=== PATIENT | male | born 1940 | race Caucasian/White ===

== ENCOUNTER 2023-06-19 18:59 | Inpatient (IN) | payer MEDICARE, OTHER, SELFPAY ==
[2023-06-19] VITALS (7 sets, daily range): BP systolic 102–112; BP diastolic 63–69; BMI 19.9; BMI 18.6
[2023-06-19 16:25] LABS: % Basophils 0.4 % (0-2); % Eosinophils 0.4 % (0-6); % Immature Granulocytes 0.3 % (0-0.5); % Lymphocytes 20.7 % (20.5-51.1); % Monocytes 8.9 % (1.7-9.3); % Neutrophils 69.3 % (42.2-75.2); Absolute Lymphocytes 1.6 10^3/uL (1.2-3.4); Absolute Monocytes 0.7 10^3/uL (0.1-0.6); Absolute Neutrophils 5.4 10^3/uL (1.4-6.5); Hemoglobin 19.1 g/dL (13.0-18.0); Mean Corp Hgb Conc. 34.7 g/dL (33.0-37.0); Mean Corpuscular Hgb 34.1 pg (27.0-31.0); Mean Corpuscular Volume 98.2 fL (80.0-94.0); Mean Platelet Volume 12.6 fL (7.4-10.4); Nucleated Red Blood Cells % 1.3 % (-); Platelet Count 151 10^3/uL (130-400); Red Cell Dist. Width 16.3 % (11.5-14.5); White Blood Cell Count 7.7 10^3/uL (4.8-10.8)
[2023-06-19 16:38] LABS: ALT (SGPT) 30 U/L (0-50); AST (SGOT) 50 U/L (17-59); Alkaline Phosphatase 136 U/L (38-126); Blood Urea Nitrogen 62 mg/dl (9-20); Calcium 9.7 mg/dl (8.4-10.2); Carbon Dioxide 24 mmol/L (22-30); Chloride 99 mmol/L (98-107); Estimated Creatinine Clearance 32 ml/min; Glucose 125 mg/dl (70-99); Potassium 5.6 mmol/L (3.5-5.1); Sodium 134 mmol/L (135-145); Total Bilirubin 2.8 mg/dl (0.2-1.3); Total Protein 6.7 g/dl (6.3-8.2); eGFR 46.48
--- NOTE | 2023-06-19 16:47 | PHANOTE ---
06/19/2023, [employer], spoke to pt.'s daughter to obtain pt.'s med. history; per daughter, pt. does not take his prescribed medications regularly; pt. often skips taking his meds. and is non-compliant.
--- NOTE | 2023-06-19 16:47 | ED.GENMED ---
History of Present Illness
General
Chief Complaint: Weakness
Source: patient and family
Exam Limitations: none
Time Seen by Provider: 06/19/23 16:28
Nursing documentation reviewed up to this point in time: agreed with
Travel History
Have you had any contact with someone who has COVID-19?: No
Do you have any symptoms of coronavirus? Fever > 100 degrees, chills, cough, shortness of breath, sore throat, loss of taste or smell, muscle aches, or headache?: No
History of Present Illness
History of Present Illness:
Patient is an 82-year-old male with a history of cardiac arrest in 2019, status post LAD stenting, ICD/pacer, chronic worsening cardiomyopathy with an EF of 15%, DVT on Eliquis
Presents from home with and daughter for several days of fatigue, lack of appetite and generalized weakness. Today he started having some diarrhea. He does not believe there is any blood in the stool.
He says he has taken a couple bites of his food over the last couple days but he just has a lack of appetite, he is not getting any postprandial pain or vomiting.
Patient has not had any fevers or chills. He has a chronic cough
. He was admitted last November for pneumonia patient has a palliative care physician who sent him in for evaluation. He apparently had been evaluated for hospice but is not actively on hospice. He takes 20 mg of torsemide daily however his
daughter just does believe that he is not taking his medications as prescribed. She says that she is seen that his dispenser is full of pills. She is not really sure what he has been taking regularly if anything. Patient also woke up today with
swelling around his eyes
Past History
Past History
ED Past Medical History: Arrthythmia (Atrial fib), CAD, CHF, HTN, Hypercholesterolemia, [place], Psychiatric (Depression), Other (kidney stones, Cardiac arrest, DVT, Prior Peg, UTI) and Other (DVT)
ED Past Surgical History: Cardiac (Defib) and Other (Prior Trach, Hernia repair X 2. Stents x 2)
Social History
Tobacco: Non-smoker
Alcohol: None
Drug: None
Personal:
Living: with family
Employment: Retired
Family History
Family History: Other
Review of Systems
Review of Systems
Allergies reviewed?: Yes
All Other Systems: Not applicable
Phy Exam
Physical Exam
Physical Exam:
GENERAL: Alert , in no apparent distress, chronically ill
EYE: pupils equal and reactive, pale
NECK: Supple
ENT: o/p clr, mmm.
CARDIAC: Regular rate and rhythm
some edema R>L upper eye
LUNGS: milld tachypnea, rhonchi throughout; no rales appreciated, no LE edema
ABDOMEN: Soft, without focal tenderness, no r/g, no cvat, normal bowel sounds
NEUROLOGICAL: Alert and oriented, no focal neuro deficits
SKIN: Warm and dry, skin intact.
MUSCULOSKELETAL: No edema, well perfused. neg gunjan's sign
PSYCH: Normal and appropriate interaction.
Course
Orders/Labs/Results
Orders:
Orders
06/19/23 15:16
Electrocardiogram (*1) Urgent
Reason for Study: Fatigue / Weakness
06/19/23 15:17
EKG- Treatment ONCE
06/19/23 16:19
Complete Blood Count/With Diff Urgent
Comprehensive Metabolic Panel Urgent
Lipase Urgent
NT-proBNP Urgent
Comment: ADD ON
Troponin I Urgent
06/19/23 16:35
Add On- LAB Urgent
Tests Added?: lipase, bnp
CR Chest - 2 Views Urgent
Comment:
Reason For Exam: cough, weakness
06/19/23 16:55
COVID-19 Antigen Urgent
Source: Nasal Swab
Influenza A+B Rapid Molecular Urgent
JONATHON Source: Nasal Swab
Specimen Description:
06/19/23 17:32
Piperacillin/Tazo 3.375 Gram [Zosyn] 3.375 gram in 50 ml IV NOW
06/19/23 17:37
0.9% Sodium Chloride 250 ml [Nss] 250 ml IV BOLUS
06/19/23 17:45
Blood Culture Q30M
JONATHON Source: Blood/Venous
Specimen Description:
06/19/23 18:13
Sputum Culture [Respiratory Culture/Gram Stain] Routine
JONATHON Source: Sputum
Specimen Description:
Sodium Zirconium Cyclosilicate [Lokelma] 10 gram PO NOW STA
06/19/23 18:14
Admit/Transfer Patient As Directed
Co-Sign Provider:
Level of Care: Inpatient admission
Assign to:: Telemetry
Physician / Group: kelby markham
Diagnosis: weakness 2/2 R pna pleueral effusions, beti/dehydration, hyperkalemia
Reason for Telemetry: Arrhythmia
Date to Stop Telemetry: 06/22/23
Time to Stop Telemetry: 11:00
Reason for Hospitalization: weakness 2/2 R pna pleueral effusions, beti/dehydration, hyperkalemia
Expected length of stay greater than two midnights?: Yes
ELOS- Estimated Length of Stay in days: 3
I certify the patient meets the requirements for IP care: Yes
Code Status As Directed
Resuscitation Status: Do not resuscitate
Reached after discussion with pt or family/Healthcare POA: Yes
Based on pt advanced directive or healthcare POA form: Yes
Decision communicated with: Per patient with Lauren at bedside
DNR Bracelet Application ONCE
06/19/23 18:15
Blood Culture Q30M
JONATHON Source: Blood/Venous
Specimen Description:
06/19/23 18:19
PULMONARY CONSULT Routine
Consulting Provider: Ese Sampson
Was physician already notified: Yes
Reason for consult: right ll pna bilat plueral effusions
06/19/23 18:31
Procalcitonin Urgent
PCT Algorithmm Indication: Respiratory
06/19/23 18:50
Vancomycin [Vancocin] 1,500 mg 0.9% Sodium Chloride [Nss] 20 ml 0.9% Sodium Chloride 250 ml [Nss] 250 ml IV NOW
06/19/23 20:00
VANCOMYCIN Pharmacy to Dose [VANCOCIN Pharmacy to Dose] 1 each Pharmacy To Prepare [Call Pharmacy To Prepare] 0 ml IV PER PROTOCOL
06/19/23 20:11
Urinalysis Reflex To Culture Urgent
Date Specimen was Collected: 06/19/23
Time Specimen was Collected: 16:37
Urine Microscopic Reflex Cult Urgent
Legionella Urinary Antigen Urgent
JONATHON Source: Urine
Specimen Description:
06/22/23 11:00
DC Protocol for Telemetry ONCE
Abnormal Lab Results
06/19/23
16:19
Hgb 19.1 H g/dL
(13.0-18.0)
Hct 55.0 H %
(39.0-52.0)
MCV 98.2 H fL
(80.0-94.0)
MCH 34.1 H pg
(27.0-31.0)
RDW 16.3 H %
(11.5-14.5)
MPV 12.6 H fL
(7.4-10.4)
Absolute Monos (auto) 0.7 H 10^3/uL
(0.1-0.6)
Sodium 134 L mmol/L
(135-145)
Potassium 5.6 H mmol/L
(3.5-5.1)
BUN 62 H mg/dl
(9-20)
Creatinine 1.5 H mg/dL
(0.7-1.3)
Glucose 125 H mg/dl
(70-99)
Total Bilirubin 2.8 H mg/dl
(0.2-1.3)
Alkaline Phosphatase 136 H U/L
(38-126)
Troponin I 0.069 H* ng/ml
06/19/23 16:19
06/19/23 16:19
Vital Signs
Initial and Last Documented VS:
Initial Vital Signs
Temp Pulse Resp BP Pulse Ox
97.6 F 73 16 102/65 96
06/19/23 15:12 06/19/23 15:12 06/19/23 15:12 06/19/23 15:12 06/19/23 15:12
Last Documented Vital Signs
Temp Pulse Resp BP Pulse Ox
97.6 F 65 16 109/69 92
06/19/23 15:12 06/19/23 21:00 06/19/23 21:00 06/19/23 21:00 06/19/23 20:15
MDM/Problems Addressed
Differential Diagnosis Includes:
chf, pneumonia, flu, viral syndrome, covid
MDM/Problems Addressed:
82 y/o M with CAD s/p cardiac arrest 2020 with cardiomyopathy, pacer/icd, ef of 15% here with 3-4 days fatigue, not eating, diarrhea today and a little perioribtal swelling; pt looks wiped out, stable vitals, rhonchi both lungs with cough, no LE
edema but some eyelid edema; cxr looks c/w pna and small effusions; ekg is unchanged, he does have chronically slightly elevated st seg v5, v6; trop 0.06, no chest pain, mild BETI, and hyperkalemia;
requires hospitalization for trop trending, hyperkalemia treamtnet, gentle hydration, IV abx.
*Critical Care Note
Total Time (30-74mins, 75-104mins- exclusive of procedures): Not Applicable
ED Attending Note
-
Portions of this chart may have been created with voice recognition software.� Occasional wrong word or��sound alike� substitutions may have occurred due to the inherent limitations of voice recognition software.
Discharge Plan
Departure
Patient Disposition: Admit
Date of Disposition: 06/19/23
Time of Disposition: 17:36
Presentation/result/management discussed w/ accepting MD/DO: Hospitalist
Condition: Fair
Covid-19: Not Applicable
Discharge Problem:
Pneumonia, BETI (acute kidney injury), Hyperkalemia
Interventions
Interventions:
*General Assessment Last Done: 06/19/23 16:29
*Neglect/Abuse Screening Last Done: 06/19/23 16:29
*ED COVID-19 Vaccine History Last Done: 06/19/23 16:29
*Nursing Disposition Last Done: 06/19/23 20:31
ED- Cardiac Assessment Last Done: 06/19/23 16:29
ED- Neurological Assessment Last Done: 06/19/23 16:29
ED- Pulmonary Assessment Last Done: 06/19/23 16:29
Discharge Date and Time
Discharge Date/Time: 06/19/23 21:13
[2023-06-19 16:51] LABS: Troponin I 0.069 ng/ml
[2023-06-19 17:36] LABS: COVID-19 Antigen Negative (Negative)
[2023-06-19] MEDS: ZOSYN 50 IV ×2 (17:43→23:56)
--- NOTE | 2023-06-19 17:45 | HPS.HSE ---
Family Physician
-
Family Physician: * NONE
Chief Complaint
-
Fatigue, generalized weakness, lack of appetite, diarrhea, chronic cough
History of Present Illness
82-year-old male from home complaining of fatigue, lack of appetite and generalized weakness along with some diarrhea today and a chronic cough. He denies any blood or black stools. He denies fever, chills, chest pain, palpitations, shortness of
breath, abdominal pain, nausea, vomiting, diarrhea. He was sent by his palliative care physician for evaluation. His daughter reports that his pill dispenser seems full of pills and she is unsure if he is taking his medications regularly. He has
past medical history of cardiac arrest 2019 with LAD stent, severe ischemic cardiomyopathy EF 15%, defibrillator/pacemaker, A-fib, moderate to severe MR, CHF, HTN, HLD, depression, DVT, BPH, GERD.
Medical History
Past Medical History
Past Medical History: Reports Other
Additional Past Medical History:
cardiac arrest 2020 with LAD stent
severe ischemic cardiomyopathy EF 15%
defibrillator/pacemaker
A-fib paroxysmal
moderate to severe MR
Chronic CHF
HTN
HLD
depression
DVT
BPH
GERD.
Past Surgical History: Reports Other
Additional Past Surgical History:
Defibrillator/pacemaker 2020
Cardiac arrest status post LAD stent 2020
Social History
Tobacco: Non-smoker
Alcohol: None
Drug: None
Personal:
Living: With Family ( alise)
Employment: Retired
Family History
Family History: Other (Mother age 95 post cardiac valve replacement, father CHF)
Allergies / Home Medications
Allergies reflects when Allergies were last updated in [employer].
Home Medications with original date entered in [employer]
Allergy/Medication List:
Allergies
Allergy/AdvReac Type Severity Reaction Status Date / Time
acetaminophen Allergy Rash Verified 06/19/23 15:10
[From Unisom Dual Relief]
cefepime Allergy Rash Verified 06/19/23 15:10
cefuroxime Allergy Rash Verified 06/19/23 15:10
cortisone Allergy Rash Verified 06/19/23 15:10
diphenhydramine Allergy Rash Verified 06/19/23 15:10
[From Unisom Dual Relief]
hydrocortisone Allergy Rash Verified 06/19/23 15:10
Iodinated Contrast Media Allergy Rash Verified 06/19/23 15:10
Sulfa (Sulfonamide Allergy Rash Verified 06/19/23 15:10
Antibiotics)
Home Medications
metoprolol succinate 25 mg tablet,extended release 24 hr 12.5 mg PO HS Blood Pressure 05/22/20
amiodarone 100 mg tablet 100 mg PO HS Arrhythmia 11/04/22
apixaban 2.5 mg tablet (Eliquis) 2.5 mg PO BID Blood Clot Prevention/Tx 11/04/22
aspirin 81 mg tablet,delayed release 81 mg PO DAILY@1999 Blood Clot Prevention/Tx 11/04/22
famotidine 20 mg tablet 20 mg PO BID Gastrointestinal Issue 11/04/22
finasteride 5 mg tablet 5 mg PO DAILY Urinary Issue 01/02/23
escitalopram oxalate 10 mg tablet 5 mg PO HS 06/19/23
torsemide 20 mg tablet 20 mg PO DAILY 06/19/23
Physical Exam
Vital Signs
Vital Signs
Temp Pulse Resp BP Pulse Ox
97.6 F 73 16 102/65 96
06/19/23 15:12 06/19/23 15:12 06/19/23 15:12 06/19/23 15:12 06/19/23 15:12
Laboratory Results
-
06/19/23 16:19
06/19/23 16:19
Laboratory Results
Total Bilirubin 2.8 mg/dl (0.2-1.3) H 06/19/23 16:19
AST 50 U/L (17-59) 06/19/23 16:19
ALT 30 U/L (0-50) 06/19/23 16:19
Alkaline Phosphatase 136 U/L (38-126) H 06/19/23 16:19
Troponin I 0.069 ng/ml H* 06/19/23 16:19
Impression/Plan
-
Impression/plan:
Admit to telemetry
Generalized weakness 2/2 right basilar pneumonia/BETI
Hx nasal MRSA last visit
BP 102/65
-COVID/flu negative
-Blood cultures x 2, sputum culture
-Incentive spirometry
-IV Zosyn IV vancomycin
-Consult pulmonary
CXR: Bilateral pleural effusions right greater than left, bibasilar atelectasis, consolidation in the right base consistent with pneumonia
#BETI 2/2 dehydration
Creat 1.5 prior baseline 0.21 December 2022
250 cc an NSS given in ER
Will give IV NSS 80 cc x 500 cc additional bolus only
#Hyperkalemia
K5.6
Lokelma 10gm now
Follow BMP
#Non-PR troponin elevation
Troponin 0.069 will trend
-Consult [facility] cardiology
#Severe ischemic cardiomyopathy/chronic CHF
#Defibrillator/pacemaker hx
EF 15%�04/30/2022
I/O, daily weights
-Continue metoprolol, torsemide
CAD
Anterior PR complicated by cardiac arrest S/P PCI 2019�LAD stent
-Continue aspirin, statin
#Moderate to severe MR
PAF
-Continue amiodarone, metoprolol, Eliquis 2.5 mg twice daily
#GERD
-Continue Pepcid 20 mg twice daily
BPH
-Continue finasteride
[2023-06-19 18:33] LABS: Lipase 133 U/L (23-300)
[2023-06-19] MEDS: LOKELMA 10 GRAM PO (18:39)
[2023-06-19 18:58] LABS: NT-proBNP > 27000 pg/ml
[2023-06-19 19:05] LABS: Procalcitonin 0.07 ng/ml (0.0-0.25)
--- NOTE | 2023-06-19 19:14 | PHA.VAN.IN ---
Assessment
- Assessment
Renal Function: Appears elevated from baseline (01/11/23 BASELINE SCR =0.9)
Concomitant Antimicrobials: NONE
- Previous Dosing Experience
Previous Regimen: 750MG IV Q24H
Date of Regimen: 01/07/23
Provided Trough of: 12.8 PREDICTED
Provided AUC of: 413 PREDICTED
Patient's SCR is: Elevated compared to previous dosing experience (01/06/23 SCR =1.0)
Patient's weight is: Elevated compared to previous dosing experience (01/06/23 WT = 53.5 KG)
Plan
- Plan
Initial / Loading Dose: 1500MG
Maintenance Regimen: DOSING BY RANDOM LEVEL
Monitoring: RANDOM VANCOMYCIN LEVEL 06/20/23 AM
Pharmacokinetics Vancomycin I
- -
Patient Age: 82
Patient Sex: Male
Vancomycin Day #: 1
Indication: Pulmonary/Respiratory
Requesting Provider: DANIELA
Pertinent Antimicrobial Allergies:
Allergies
Sulfa (Sulfonamide Antibiotics) Allergy (Verified 06/19/23 15:10)
Rash
cefepime Allergy (Verified 06/19/23 15:10)
Rash
cefuroxime Allergy (Verified 06/19/23 15:10)
Rash
Height / Weight:
Height 5 ft 7 in
Actual Weight 57.7 kg
- Vital Signs / Lab Results
Temp Pulse Resp BP Pulse Ox
97.6 F 63 12 111/69 90
06/19/23 15:12 06/19/23 19:00 06/19/23 19:00 06/19/23 19:00 06/19/23 19:00
Lab Results - Hematology
06/19/23
16:19
WBC 7.7
Lab Results - Chemistry
06/19/23
16:19
BUN 62 H
Creatinine 1.5 H
Estimated Creat Clear 32
Albumin 4.0
Microbiology Results
06/19/23 16:55 Influenza Types A & B ([facility]) - Final
Nasal Swab Negative for Influenza A & B, NAAT
Negative results must be combined with clinical observations
and patient history.
Nucleic Acid Amplification test (NAAT)performed on the
[employer] platform.
--- NOTE | 2023-06-19 19:42 | HPS.HSE ---
Addendum entered and electronically signed by Kamron Moreau MD 06/19/23 22:13:
Pt is weak, general malaise
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
Lungs shallow respirations with decreased BS bilateral lower lung zavala, scattered rhonchi
CV reg, no m, g
Abd soft, nondistended
Ext no edema
Imp: RLL PNA
profound weakness
cardiomyopathy with EF 15-20%
P:empiric abx
Pulmonary, Cardio consults
cautious IVF
Original Note:
Family Physician
-
Family Physician: Kamran Franco
Chief Complaint
-
Weakness, decreased appetite, not taking meds
History of Present Illness
82-year-old male complaining of weakness over the past few days not eating or drinking along with a loose cough yellow in color. His daughter reported to the ER she noticed that his medication containers were still full. When asked the patient he
did report that he has not been taking his meds for the past couple days due to fatigue. Patient denies chills, fever, chest pain, palpitations, shortness of breath, abdominal pain, nausea, vomiting, diarrhea, urinary symptoms. Patient has past
medical history of severe ischemic cardiomyopathy with EF 15%, pacemaker/defibrillator, chronic systolic CHF, paroxysmal A-fib, Cardiac arrest times 06/03/2019 status post LAD stent, required trach and PEG tube with removal 2019, recurrent right
pleural effusion status post thoracentesis with transudative fluid,moderate to severe MR,History of possible silent aspiration video swallow with delay of contrast in the distal esophagus patient declined further evaluation in December 2022
Medical History
Past Medical History
Past Medical History: Reports Other
Additional Past Medical History:
severe ischemic cardiomyopathy with EF 15%
cardiac arrest 2020 status post LAD stent required trach and PEG tube with removal 2019,
pacemaker/defibrillator
chronic systolic CHF
paroxysmal A-fib
recurrent right pleural effusion status post thoracentesis with transudative fluid
moderate to severe MR
History of possible silent aspiration video swallow with delay of contrast in the distal esophagus patient declined further evaluation in December 2022
Past Surgical History: Reports Other
Additional Past Surgical History:
Bladder stone removal
ICD/permanent pacemaker 05/22/2020
Cardiac cath with LAD stent 10/02/2019
Hernia repair x 2
Tracheostomy with removal 2019 postcardiac arrest
PEG tube with removal 2019 postcardiac arrest
Social History
Tobacco: Non-smoker
Alcohol: None
Drug: None
Personal:
Living: With Family (Lauren)
Employment: Retired
Family History
Family History: Other (Mother age 95 post valve replacement, father CHF)
Allergies / Home Medications
Allergies reflects when Allergies were last updated in [employer].
Home Medications with original date entered in [employer]
Allergy/Medication List:
Allergies
Allergy/AdvReac Type Severity Reaction Status Date / Time
acetaminophen Allergy Rash Verified 06/19/23 15:10
[From Unisom Dual Relief]
cefepime Allergy Rash Verified 06/19/23 15:10
cefuroxime Allergy Rash Verified 06/19/23 15:10
cortisone Allergy Rash Verified 06/19/23 15:10
diphenhydramine Allergy Rash Verified 06/19/23 15:10
[From Unisom Dual Relief]
hydrocortisone Allergy Rash Verified 06/19/23 15:10
Iodinated Contrast Media Allergy Rash Verified 06/19/23 15:10
Sulfa (Sulfonamide Allergy Rash Verified 06/19/23 15:10
Antibiotics)
Home Medications
metoprolol succinate 25 mg tablet,extended release 24 hr 12.5 mg PO HS Blood Pressure 05/22/20
amiodarone 100 mg tablet 100 mg PO HS Arrhythmia 11/04/22
apixaban 2.5 mg tablet (Eliquis) 2.5 mg PO BID Blood Clot Prevention/Tx 11/04/22
aspirin 81 mg tablet,delayed release 81 mg PO HS Blood Clot Prevention/Tx 11/04/22
famotidine 20 mg tablet 20 mg PO BID Gastrointestinal Issue 11/04/22
finasteride 5 mg tablet 5 mg PO DAILY Urinary Issue 01/02/23
escitalopram oxalate 10 mg tablet 5 mg PO HS 06/19/23
torsemide 20 mg tablet 20 mg PO DAILY 06/19/23
Review of Systems
-
History Source: Patient and Family ( Lauren at bedside)
A 12 point ROS was completed and negative except as noted: Yes
Constitutional: Denies Fever, Fatigue or Chills
EENT: Denies Sore Throat or Runny Nose
Respiratory: Reports Cough (Yellow in color); Denies Trouble Breathing
Cardiac: Denies Chest Pain, Diaphoresis, Palpitations or Syncope
Abdomen/GI: Denies Abdominal Pain, Nausea, Vomiting, Diarrhea, Constipated, Bloody Stools or Black Stools
: Denies Dysuria, Frequency, Flank Pain, Incontinence, Difficulty Voiding or Urgency
Musculoskeletal: Denies Joint Pain or Edema
Skin: Denies Itching or Rash
Neurological: Denies Dizzy, Headache or Weakness
Endocrine: Reports No Symptoms
Hematologic/Lymphatic: Reports No Symptoms
Psych: Reports Calm
Physical Exam
Vital Signs
Vital Signs
Temp Pulse Resp BP Pulse Ox
97.6 F 63 12 111/69 90
06/19/23 15:12 06/19/23 19:00 06/19/23 19:00 06/19/23 19:00 06/19/23 19:00
Physical Exam
General: Comfortable and Conversant; No Pain, Fever or Chills
HEENT: NormoCephalic, Anicteric, PERRLA, Baird Conjunctivae, No Ptosis and Other (Dry oral mucosa)
Respiratory: Wheezes and Rhonchi (Bilateral lower bases right greater than left with expiratory wheezes)
Cardiac: S1/S2 and Regular Rhythm; No Murmur, Rub, Gallop or Peripheral Edema
GI: Soft, Non Tender, Non Distended, Normal Bowel Sounds and No Hepatosplenomegaly
Rectal: Deferred by Provider
Genito-urinary: Deferred by me
Musculoskeletal: No Clubbing, No Cyanosis and No Edema
Skin: Warm and Dry; No Rash or Jaundice
Neuro: AO x 3, No Motor Deficits, Nonfocal/grossly intact and No Sensory Deficits; No Slurred Speech, Facial Droop or Tremors
Psych: Calm
Laboratory Results
-
06/19/23 16:19
06/19/23 16:19
Laboratory Results
Total Bilirubin 2.8 mg/dl (0.2-1.3) H 06/19/23 16:19
AST 50 U/L (17-59) 06/19/23 16:19
ALT 30 U/L (0-50) 06/19/23 16:19
Alkaline Phosphatase 136 U/L (38-126) H 06/19/23 16:19
Troponin I 0.069 ng/ml H* 06/19/23 16:19
Lipase 133 U/L (23-300) 06/19/23 16:19
Data Reviewed
-
Lab Data: Labs Reviewed by me
Impression/Plan
-
Impression/plan:
Admit to telemetry
#Weakness secondary to right lower lobe pneumonia, small bilateral pleural effusions
#History of possible silent aspiration video swallow with delay of contrast in the distal esophagus patient declined further evaluation in December 2022
# History of recurrent right pleural effusion requiring thoracentesis in past
COVID/flu negative
-Consult pulmonary
-Speech swallow eval
-Sputum culture
-Incentive spirometry
-IV vancomycin, IV Zosyn
-Follow CBC, BMP
#BETI secondary to dehydration
Creat 1.5 was 0.9 12/2022
-250 cc NSS given in ER
-Give additional NSS 80 cc an hour x 500 cc total
-Follow BMP
#Hyperkalemia likely secondary to dehydration
K5.6
Single dose Lokelma 10 g p.o. now
-Follow BMP
#Ischemic cardiomyopathy/severe 10-15% December 2022
I/O, daily weights
-Continue metoprolol
-Hold torsemide due to BETI/dehydration
-Consult [facility] cardiology
TTE 04/30/2022: EF 10-15%, severe global hypokinesis with only inferior base and mid septum bora, stage III diastolic dysfunction, dilated right ventricle, moderate to severe mitral regurg, mild TR pulm arterial pressure 65 to 70 mmHg
#Cardiac arrest times 14 October 2019-status post stent LAD 09/2019
#Required trach and PEG tube both removed 2019
#Defibrillator/pacemaker 05/22/2020
#CAD
Continue aspirin, atorvastatin
#Paroxysmal A-fib
-Continue Eliquis 2.5 mg twice daily, amiodarone, metoprolol
#GERD
-Continue Pepcid 20 mg twice daily
#Anxiety/depression
-Continue Lexapro 5 mg at bedtime
Other PMH
BPH-continue finasteride 5 mg daily
Renal calculi
DVT prophylaxis
Continue Eliquis
DNR per patient with Lauren at bedside
[2023-06-19] MEDS: VANCOCIN 300 MG IV (19:52)
[2023-06-19] MEDS: VANCOCIN 300 ML IV (19:52)
[2023-06-19 20:18] LABS: Urine Albumin 1+ (Neg - Trace); Urine Bilirubin Negative (Negative); Urine Character Clear (Clear); Urine Color Yellow; Urine Glucose Negative (Negative); Urine Ketone Negative (Negative); Urine Leukocyte Trace (Negative); Urine Nitrite Negative (Negative); Urine Occult Blood Trace (Negative); Urine Specific Gravity 1.025 (<1.030); Urine Urobilinogen 1+ (Neg - 1+)
[2023-06-19 20:27] LABS: Urine Hyaline Cast >15 /LPF (0-2); Urine Red Blood Cell 0-2 /HPF (0-2); Urine White Cell 0-2 /HPF (0-5)
[2023-06-19] MEDS: NSS 500 IV (22:06)
[2023-06-19] MEDS: PACERONE 100 MG PO (22:07)
[2023-06-19] MEDS: LEXAPRO 5 MG PO (22:07)
[2023-06-19] MEDS: PEPCID 20 MG PO (22:07)
[2023-06-19] MEDS: ELIQUIS 2.5 MG PO (22:07)
[2023-06-19] MEDS: ASPIR LOW (ENTERIC COATED) 81 MG PO (22:07)
[2023-06-19] MEDS: TOPROL XL 12.5 MG PO (22:08)
[2023-06-19 22:39] LABS: Troponin I 0.064 ng/ml
[2023-06-20] VITALS (10 sets, daily range): BP systolic 98–112; BP diastolic 49–66; PULSE 64; O2SAT 100; BMI 18.4
[2023-06-20] MEDS: ZOSYN 50 IV ×3 (05:19→17:47)
[2023-06-20 07:18] LABS: % Basophils 0.4 % (0-2); % Eosinophils 0.6 % (0-6); % Immature Granulocytes 0.4 % (0-0.5); % Lymphocytes 5.5 % (20.5-51.1); % Neutrophils 87.1 % (42.2-75.2); Absolute Eosinophils 0.1 10^3/uL (0-0.7); Absolute Lymphocytes 0.6 10^3/uL (1.2-3.4); Absolute Monocytes 0.7 10^3/uL (0.1-0.6); Absolute Neutrophils 9.8 10^3/uL (1.4-6.5); Hematocrit 50.9 % (39.0-52.0); Hemoglobin 17.9 g/dL (13.0-18.0); Mean Corp Hgb Conc. 35.2 g/dL (33.0-37.0); Mean Corpuscular Hgb 34.1 pg (27.0-31.0); Mean Platelet Volume 12.4 fL (7.4-10.4); Nucleated Red Blood Cells % 0.5 % (-); Platelet Count 121 10^3/uL (130-400); Red Blood Cell Count 5.25 10^6/uL (4.70-6.10); Red Cell Dist. Width 15.6 % (11.5-14.5); Vancomycin Random 15.9 ug/ml; White Blood Cell Count 11.3 10^3/uL (4.8-10.8)
[2023-06-20 07:26] LABS: Troponin I 0.052 ng/ml
--- NOTE | 2023-06-20 08:07 | CON.PUL ---
Consultation
Consultation Request
Date/Time Consultation Requested: 06/20/2023-7:30 AM
Date/Time Consultation Performed: 06/20/2023-8:30 AM
Requesting Provider: Dr. Moreau
Performing Provider: Dr. Patiño
Reason for Consultation: Shortness of breath
Medical History
-
Chief Complaint: Shortness of breath
History of Present Illness:
82-year-old male with underlying severe ischemic cardiomyopathy EF 15%, CAD, LAD stent, history of ventilator/trach/gastrostomy tube removed 2019 who has recurrent right pleural effusions and likely has silent aspirator presented with weakness,
decreased appetite noted to have possible pneumonia-pulmonary consulted for pneumonia and shortness of breath 06/20/2023. Patient is somewhat of a poor historian. At rest he does not complain of shortness of breath. He has mild chest congestion.
He does not have a productive cough, and does not complain of pleurisy, hemoptysis, abdominal pain, nausea, weakness or increased lower extremity swelling.
Past Medical History
Past Medical History: None (Cardiomyopathy-EF of 15%. Severe mitral regurgitation. Cardiac arrest 2019 status post LAD stent/ventilator/trach/gastrostomy tube subsequently removed. Pacemaker/ICD. Chronic CHF. PAF. Recurrent right pleural
effusion status post multiple thoracenteses-transudate.)
Social History
Tobacco: Non-smoker
Alcohol: None
Drug: None
Personal:
Living: With Family
Occupational Exposures: No known asbestos exposure
Environmental Exposures: No known tuberculosis exposure
Family History
Family History: Other (Father-CHF. Mother valve replacement.)
Allergies / Home Medications
Allergies
Allergy/AdvReac Type Severity Reaction Status Date / Time
acetaminophen Allergy Rash Verified 06/19/23 15:10
[From Unisom Dual Relief]
cefepime Allergy Rash Verified 06/19/23 15:10
cefuroxime Allergy Rash Verified 06/19/23 15:10
cortisone Allergy Rash Verified 06/19/23 15:10
diphenhydramine Allergy Rash Verified 06/19/23 15:10
[From [facility] Dual Relief]
hydrocortisone Allergy Rash Verified 06/19/23 15:10
Iodinated Contrast Media Allergy Rash Verified 06/19/23 15:10
Sulfa (Sulfonamide Allergy Rash Verified 06/19/23 15:10
Antibiotics)
Home Medications
Medication Instructions Recorded Confirmed Last Taken Type
metoprolol succinate 25 mg 12.5 mg PO HS Blood Pressure 05/22/20 06/19/23 01/01/23 History
tablet,extended release 24 hr
amiodarone 100 mg tablet 100 mg PO HS Arrhythmia 11/04/22 06/19/23 01/01/23 History
apixaban 2.5 mg tablet (Eliquis) 2.5 mg PO BID Blood Clot 11/04/22 06/19/23 01/02/23 History
Prevention/Tx
aspirin 81 mg tablet,delayed 81 mg PO HS Blood Clot 11/04/22 06/19/23 01/01/23 History
release Prevention/Tx
famotidine 20 mg tablet 20 mg PO BID Gastrointestinal Issue 11/04/22 06/19/23 01/02/23 History
finasteride 5 mg tablet 5 mg PO DAILY Urinary Issue 01/02/23 06/19/23 01/02/23 History
escitalopram oxalate 10 mg tablet 5 mg PO HS 06/19/23 06/19/23 Unknown History
torsemide 20 mg tablet 20 mg PO DAILY 06/19/23 06/19/23 Unknown History
Review of Systems
-
Unable to Obtain full review of systems at this time due to: Other (Per HPI)
Vitals / Labs / Diagnostic Testing
Vital Signs
Temp Pulse Resp BP Pulse Ox
97.5 F 61 18 107/62 96
06/20/23 04:08 06/20/23 04:08 06/20/23 04:08 06/20/23 04:08 06/20/23 04:08
Lab Data
06/20/23 06:53
Microbiology
06/19/23 20:11 Urine Legionella Urinary Antigen - Final
Negative for Legionella pneumophila Serogroup 1 antigen.
A negative result does not rule out the possiblity of
Legionella infection due to other serogroups or species of
Legionella. Clinical correlation is recommended.
06/19/23 16:55 Nasal Swab Influenza Types A & B (SULTANA) - Final
Negative for Influenza A & B, NAAT
Negative results must be combined with clinical observations
and patient history.
Nucleic Acid Amplification test (NAAT)performed on the
[employer] platform.
Diagnostic Testing:
Physical Exam
-
Exam:
Well-nourished and well-developed in no apparent distress
HEENT-atraumatic, normocephalic
Neck-supple, no JVD, no bruit
Heart-regular rate and rhythm-no murmurs, rubs or gallops
Chest with diminished breath sounds, rare crackles and no wheezes
Abdomen-soft, nontender, nondistended, no hepatosplenomegaly
Extremities-no cyanosis, clubbing, trace lower extremity edema
Integument-intact, no rashes, lesions or ecchymosis
Neurology-alert and oriented, nonfocal motor and sensory exam
Assessment
-
82-year-old male with underlying severe ischemic cardiomyopathy EF 15%, CAD, LAD stent, history of ventilator/trach/gastrostomy tube removed 2019 who has recurrent right pleural effusions and likely has silent aspirator presented with weakness,
decreased appetite noted to have possible pneumonia-pulmonary consulted for pneumonia and shortness of breath 06/20/2023.
Assessment
Right lower lobe infiltrate-suspect pneumonia with small bilateral pleural effusions
Aspiration risk
BETI
Hyperkalemia
Ischemic cardiomyopathy-EF 10-15%
Mild leukocytosis-WBC 11.3
Mild thrombocytopenia-platelet 121
Elevated total bilirubin 2.9
Non-UT troponin elevation
Hypoalbuminemia
Conditions present prior to admission:
Recent hospitalization 12/2022-CHF, EF 10-15%, PAF
Recurrent right pleural effusion: Status postthoracentesis 09/27/2022, 11/14/2022, 12/18/2022: Transudative
Seen by Dr. Metz 09/2022, [facility] records reviewed
Ischemic cardiomyopathy ejection fraction 10 to 15%
Severe mitral regurgitation
CAD/stent
Cardiac arrest 2020 status post LAD stent/ventilator/trach/gastrostomy tube subsequently removed.
Atrial fibrillation on anticoagulation/amiodarone
Status post ICD
Moderate to severe MR
BPH
Recurrent right pleural effusion status post multiple thoracenteses-transudate.
Plan
Mild respiratory decompensation likely related to pneumonia-aspiration risk with recurrent right lower lobe pneumonia
Supplemental oxygen
Aspiration precautions
Speech therapy evaluation
Nebulizers if needed-currently not bronchospastic
Check cultures
Empiric antibiotics-vancomycin and Zosyn initiated
Procalcitonin negative-unclear whether infiltrates are chronic, some appear to be new, and procalcitonin not always reliable with aspiration
Monitor leukocytosis
Gentle diuresis
Monitor renal function-increased from baseline
Correcting electrolyte imbalances
Troponin trend
Amiodarone 100 mg daily continues
Cardiology consultation pending
Monitor hemoglobin and platelet count
Transfuse if needed
Follow isolated total bilirubin elevation
DVT prophylaxis-on Eliquis
Nutrition with aspiration precautions
Early mobilization/physical therapy
Follow-up with Dr. Metz-last seen 02/18/2023-should follow-up in office with full PFTs
Diagnostic data:
Chest x-ray 01/02/2023-moderate pleural-parenchymal airspace disease on the right lung base and right-sided pleural effusion
Chest x-ray 01/11/2023-dense right lower lobe consolidation
Chest x-ray 06/19/2023-bilateral pleural effusions right greater than left with bibasilar atelectasis, consolidation at the right lung base consistent with pneumonia
CT chest 12/14/2021-Dr. Metz ordered right lower lobe pneumonia, no underlying lesion seen
CT chest 03/14/2022-mild residual right lower lobe pneumonia
CT chest 09/23/2022-moderate right pleural effusion and small left pleural effusion, interstitial thickening anterolateral right lung base
CT chest 01/04/2023-moderate right middle lobe and right lower lobe pneumonia associated with moderate to large right pleural effusion
Thoracentesis 09/27/22-- right side-1050 mL straw-colored fluid
Thoracentesis 11/14/2022-right side--900 mL straw-colored fluid
Thoracentesis 12/18/2022-right side--800 mL kolton pleural fluid
TTE 04/30/2022:�EF 10-15%, severe global hypokinesis with only inferior base and mid septum bora, stage III diastolic dysfunction, dilated right ventricle, moderate to severe mitral regurg, mild TR pulm arterial pressure 65 to 70 mmHg
PFT 06/27/22: FVC 3.14/90%, FEV1�2.51/102%, ratio 80%, TLC 4.30/66%, DLCO 11.95/53%, DLCO/VA 2.54/73%.
Data Reviewed
-
PFT: Report reviewed by me
EKG: Report reviewed by me
Radiology: Report reviewed by me
Ultrasound: Report reviewed by me
Medical Tests (Nuc Med, Echo etc): Report reviewed by me
Labs: Labs reviewed by me
Old Records: Reviewed
Total Time Spent with Patient (in minutes): 60
[2023-06-20 08:18] LABS: ALT (SGPT) 23 U/L (0-50); AST (SGOT) 38 U/L (17-59); Albumin 2.8 g/dl (3.5-5.0); Alkaline Phosphatase 115 U/L (38-126); Blood Urea Nitrogen 59 mg/dl (9-20); Calcium 8.8 mg/dl (8.4-10.2); Carbon Dioxide 21 mmol/L (22-30); Chloride 102 mmol/L (98-107); Estimated Creatinine Clearance 31 ml/min; Glucose 88 mg/dl (70-99); Potassium 4.6 mmol/L (3.5-5.1); Sodium 134 mmol/L (135-145); Total Bilirubin 2.9 mg/dl (0.2-1.3); Total Protein 5.2 g/dl (6.3-8.2); eGFR 50.49
[2023-06-20] MEDS: PROSCAR 5 MG PO (08:54)
[2023-06-20] MEDS: PEPCID 20 MG PO (08:54)
[2023-06-20] MEDS: ELIQUIS 2.5 MG PO ×2 (08:54→22:10)
--- NOTE | 2023-06-20 10:45 | CON.CAR ---
Consultation
Consultation Request
Date/Time Consultation Requested: 06/20/2023 8 AM
Date/Time Consultation Performed: 06/20/2023 8 AM
Requesting Provider: Dr. Moreau
Performing Provider: Dr. Pineda
Reason for Consultation: Cardiomyopathy, weakness
Medical History
-
History of Present Illness:
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
82-year-old male known to me from outpatient visits. Patient with complex cardiac disease, advanced heart failure with ischemic cardiomyopathy and severely reduced left ventricular function ejection fraction 20 to 25%, coronary artery disease
history of anterior AK /cardiac arrest and LAD stenting 2019, ICD, paroxysmal atrial fibrillation, recurrent pleural effusion requiring thoracentesis who presents with weakness and fatigue he thinks he started feeling more weak about a week ago but
then felt significantly worse the last 2 days decreased appetite not eating well. Decreased oral intake and he has been thirsty. He had a cough with some clear and yellow sputum but no fever. He also developed diarrhea the day prior to
presentation. It sounds as if he was missing some of his medications he might of been missing more of the evening doses because he was so tired and he was sleeping. No chest pain no increased orthopnea and no lower extremity edema. On
presentation chest x-ray suspicious for pneumonia patient has been treated with antibiotics under the direction of the hospitalist and pulmonary has been consulted. Patient also with BETI and a creatinine of 1.5
Past medical history
Ischemic cardiomyopathy with severely reduced left ventricular function and ejection fraction of 20 to 25%
Myocardial infarction complicated by cardiac arrest 2019
LAD stenting 2019
Moderate to severe mitral regurgitation
Moderate aortic regurgitation
Pleural effusion requiring thoracentesis
PAF
ICD
Past surgical history
Hernia repair
Bladder stone removal 2019
Social history. . Daughter is also involved in his medical care
Family history. Father had heart disease.
Social History
Tobacco: Non-Smoker
Personal:
Allergies / Home Medications
Allergy/AdvReac Type Severity Reaction Status Date / Time
acetaminophen Allergy Rash Verified 06/19/23 15:10
[From Unisom Dual Relief]
cefepime Allergy Rash Verified 06/19/23 15:10
cefuroxime Allergy Rash Verified 06/19/23 15:10
cortisone Allergy Rash Verified 06/19/23 15:10
diphenhydramine Allergy Rash Verified 06/19/23 15:10
[From Unisom Dual Relief]
hydrocortisone Allergy Rash Verified 06/19/23 15:10
Iodinated Contrast Media Allergy Rash Verified 06/19/23 15:10
Sulfa (Sulfonamide Allergy Rash Verified 06/19/23 15:10
Antibiotics)
Medication Instructions Recorded Confirmed Type
metoprolol succinate 25 mg 12.5 mg PO HS Blood Pressure 05/22/20 06/19/23 History
tablet,extended release 24 hr
amiodarone 100 mg tablet 100 mg PO HS Arrhythmia 11/04/22 06/19/23 History
apixaban 2.5 mg tablet (Eliquis) 2.5 mg PO BID Blood Clot 11/04/22 06/19/23 History
Prevention/Tx
aspirin 81 mg tablet,delayed 81 mg PO HS Blood Clot 11/04/22 06/19/23 History
release Prevention/Tx
famotidine 20 mg tablet 20 mg PO BID Gastrointestinal Issue 11/04/22 06/19/23 History
finasteride 5 mg tablet 5 mg PO DAILY Urinary Issue 01/02/23 06/19/23 History
escitalopram oxalate 10 mg tablet 5 mg PO HS 06/19/23 06/19/23 History
torsemide 20 mg tablet 20 mg PO DAILY 06/19/23 06/19/23 History
Review of Systems
-
All other systems: Negative unless noted
Physical Exam
Vital Signs
Temp Pulse Resp BP Pulse Ox
97.2 F 61 20 99/49 96
06/20/23 08:43 06/20/23 08:43 06/20/23 08:43 06/20/23 08:43 06/20/23 08:43
Lab Results
06/20/23 06:53
06/20/23 06:53
Troponin I 0.052 ng/ml H* 06/20/23 06:53
Nqf-L-Bgndxulsfdf Pept > 54503 pg/ml 06/19/23 16:19
Physical Exam
General: Other (Thin adult male who is awake and oriented answering questions appropriately. No distress)
HEENT: Normocephalic, Anicteric and Other (No JVD no carotid bruit)
Respiratory: Other (No wheezes rales or rhonchi)
Cardiac: Regular Rhythm
GI: Soft, Non Tender and Non Distended
Musculoskeletal: No Clubbing, No Cyanosis and No Edema
Skin: Warm, Dry and Other (No rash.)
Neuro: Alert and AO x 3
Hematologic/Lymphatic: No Lymphadenopathy
Psych: Calm and Other (Cooperative)
Impression / Plan
-
Pneumonia.
-Antibiotics as directed by primary team.
.
Chronic Heart failure with reduced left ventricular function. Patient with ischemic cardiomyopathy and severe reduced left ventricular function. He has had multiple hospitalizations for heart failure. Last hospitalization was 6 months ago.
Patient's had poor oral intake, and some diarrhea. He thinks he has been still taking his Lasix. With rising creatinine may be a component of volume depletion. Weights however are in a similar range to his previous admission back in December
2022.
-Okay to hold diuretic and monitor renal function closely
- renal function and patient's oral intake improves will consider resuming diuretic. Daily assessment regarding diuretic use
.
Coronary artery disease/history of AK/history of LAD stenting. With patient's reduction in left ventricular function and issues with recurrent heart failure repeat cardiac catheterization has been offered in the past. Patient wanted to avoid
additional invasive procedures so we have been continue with medical therapy. Currently without symptoms to suggest angina. Continue medical therapy
.
ICD stable. Currently atrially paced.
.
PAF. Stable. Atrially paced rhythm remains on Eliquis 2.5 twice daily
.
Pleural effusion. History of pleural effusion requiring thoracentesis small effusions noted on chest x-ray. Currently being treated for pneumonia. Continue to monitor.
Data Reviewed
-
EKG: Tracing Personally Visualized and interpreted (Atrially paced rhythm) and Report Reviewed by me
Radiology: Report Reviewed by me and Other (Images reviewed.)
Medical Tests (Nuc Med, Echo etc): Report Reviewed by me
Labs: Labs Reviewed by me
--- NOTE | 2023-06-20 10:49 | PHA.VAN.FU ---
Vancomycin Assessment / Plan
- Assessment
Renal Function: Stable (1.5->1.4)
WBC's are: Trending Up
Concomitant Antimicrobials: piperacillin/tazobactam
- Assessment - Therapeutic Drug Monitoring
Random Level: 15.9 ~ 9 hours post 1500 mg dose
- Dosing Plan
Continue: dosing by random level
Dosing by Level: Re-dose today (750 mg x 1 ( 14 mg/kg))
- Monitoring Plan
No level(s) ordered at this time: repeat random level AM 06/21/23
- Follow Up
Pharmacy will continue to follow.
Vancomycin Follow UP
- -
Patient Age: 82
Patient Sex: Male
Vancomycin Day #: 2
Indication: Pulmonary/Respiratory
Requesting Provider: DANIELA
Pertinent Antimicrobial Allergies:
Allergies
Sulfa (Sulfonamide Antibiotics) Allergy (Verified 06/19/23 15:10)
Rash
cefepime Allergy (Verified 06/19/23 15:10)
Rash
cefuroxime Allergy (Verified 06/19/23 15:10)
Rash
Height / Weight:
Height 5 ft 7 in
Actual Weight 53.325 kg
- Vital Signs / Lab Results
Temp Pulse Resp BP Pulse Ox
97.2 F 61 20 99/49 96
06/20/23 08:43 06/20/23 08:43 06/20/23 08:43 06/20/23 08:43 06/20/23 08:43
Lab Results - Hematology
06/19/23 06/20/23
16:19 06:53
WBC 7.7 11.3 H
Lab Results - Chemistry
06/19/23 06/20/23
16:19 06:53
BUN 62 H 59 H
Creatinine 1.5 H 1.4 H
Estimated Creat Clear 32 31
Albumin 4.0 2.8 L
Lab Results - Urine
06/19/23
20:11
Urine Nitrite (Reflex) Negative
Leukocyte Esterase Rfl Trace A
Ur Squamous Epith Cells 3-5
Microbiology Results
06/19/23 20:11 Legionella Urinary Antigen - Final
Urine Negative for Legionella pneumophila Serogroup 1 antigen.
A negative result does not rule out the possiblity of
Legionella infection due to other serogroups or species of
Legionella. Clinical correlation is recommended.
06/19/23 16:55 Influenza Types A & B (SULTANA) - Final
Nasal Swab Negative for Influenza A & B, NAAT
Negative results must be combined with clinical observations
and patient history.
Nucleic Acid Amplification test (NAAT)performed on the
[employer] platform.
Therapeutic Drug Monitoring
Random Vancomycin 15.9 ug/ml 06/20/23 06:53
--- NOTE | 2023-06-20 11:52 | W.PN.HOSP.TC ---
Today's Communication/Plan
-
holding diuretic
follow labs
Assessment / Plan
Assessment / Plan
#Weakness secondary to right lower lobe pneumonia, small bilateral pleural effusions
#History of possible silent aspiration video swallow with delay of contrast in the distal esophagus patient declined further evaluation in December 2022
# History of recurrent right pleural effusion requiring thoracentesis in past
COVID/flu negative
-Consult pulmonary - input appreciated
-Speech swallow eval
-Sputum culture
-Incentive spirometry
-IV vancomycin, IV Zosyn
-Follow CBC, BMP
WBC 11.3
#BETI secondary to dehydration
Creat 1.5-->1.4 was 0.9 12/2022
-250 cc NSS given in ER
-Give additional NSS 80 cc an hour x 500 cc total
-Follow BMP
#Hyperkalemia likely secondary to dehydration
K5.6-->4.6
Single dose Lokelma 10 g p.o. now
-Follow BMP
#Ischemic cardiomyopathy/severe 10-15% December 2022
I/O, daily weights
-Continue metoprolol
-Hold torsemide due to BETI/dehydration
-Consult [facility] cardiology - input appreciated
TTE 04/30/2022:�EF 10-15%, severe global hypokinesis with only inferior base and mid septum bora, stage III diastolic dysfunction, dilated right ventricle, moderate to severe mitral regurg, mild TR pulm arterial pressure 65 to 70 mmHg
#Cardiac arrest times 14 October 2019-status post stent LAD 09/2019
#Required trach and PEG tube both removed 2019
#Defibrillator/pacemaker 05/22/2020
#CAD
Continue aspirin, atorvastatin
#Paroxysmal A-fib
-Continue Eliquis 2.5 mg twice daily, amiodarone, metoprolol
#GERD
-Continue Pepcid 20 mg twice daily
#Anxiety/depression
-Continue Lexapro 5 mg at bedtime
Other PMH
BPH-continue finasteride 5 mg daily
Renal calculi
DVT prophylaxis
Continue Eliquis
DNR per patient with Lauren at bedside
Anticipated Discharge: > 48 hours
Subjective/Interval History
-
Date of Service: June 20, 2023
Looks remarkably better
Objective Data
-
Labs:
Laboratory Results
06/20/23
06:53
WBC 11.3 H
Hgb 17.9
Hct 50.9
Plt Count 121 L
Sodium 134 L
Potassium 4.6
Chloride 102
Carbon Dioxide 21 L
BUN 59 H
Creatinine 1.4 H
Glucose 88
Calcium 8.8
Total Bilirubin 2.9 H
AST 38
ALT 23
Alkaline Phosphatase 115
Vital Signs:
Vital Signs
Temp Pulse Resp BP Pulse Ox
97.4 F 67 18 108/59 98
06/20/23 11:20 06/20/23 11:20 06/20/23 11:20 06/20/23 11:20 06/20/23 11:20
I&O
06/19/23 06/20/23 06/21/23
06:59 06:59 06:59
Intake Total 600 / 600
Balance 600 / 600
Review of Systems
-
History Source: Patient
Constitutional: Reports No Symptoms
Respiratory: Reports Cough and Hemoptysis
Cardiac: Reports No Symptoms
Abdomen/GI: Reports No Symptoms
Genitourinary: Reports Hesitancy (with normal voiding)
Musculoskeletal: Reports No Symptoms
Skin: Reports No Symptoms
Neuro: Reports No Symptoms
Physical Exam
-
General: No Apparent Distress, Comfortable and Cachectic
HEENT: Normocephalic
Respiratory: Non Labored Respirations and Decreased Breath Sounds (in right lower lobes)
Cardiac: Regular Rhythm
GI: Soft, Nontender, Nondistended and Flat
Genito-urinary: Clear Urine
Musculoskeletal: No Clubbing
Skin: Warm and Dry
Neuro: Awake, Alert, Oriented, Nonfocal/Grossly Intact and Other (voice is stronger)
Psych: Calm
[2023-06-20] MEDS: VANCOCIN 150 IV (12:43)
--- NOTE | 2023-06-20 15:17 | CM ---
volunteer manager reviewed patient's chart and met with patient and patient lives with his spouse in a 2 story home, patient reports he has a 1st floor set up, he has 2 steps to enter home, patient is independent with adl's and uses a cane for
ambulation, patient would prefer home at discharge.
Plan; to follow up with physical therapy evaluation for final recommendation for patient.
[2023-06-20] MEDS: LEXAPRO 5 MG PO (22:10)
[2023-06-20] MEDS: ASPIR LOW (ENTERIC COATED) 81 MG PO (22:10)
[2023-06-20] MEDS: PACERONE 100 MG PO (22:11)
[2023-06-20] MEDS: TOPROL XL PO (22:12)
[2023-06-21] MEDS: FLUSH (NSS) 1 FLUSH IV ×2 (00:18→23:12)
[2023-06-21] MEDS: ZOSYN 50 IV ×5 (00:18→23:11)
[2023-06-21 03:50] VITALS: BP 113/62
[2023-06-21 06:00] VITALS: BMI 18.7
[2023-06-21 06:18] LABS: % Basophils 0.8 % (0-2); % Eosinophils 1.6 % (0-6); % Immature Granulocytes 0.4 % (0-0.5); % Lymphocytes 11.1 % (20.5-51.1); % Monocytes 8.4 % (1.7-9.3); % Neutrophils 77.7 % (42.2-75.2); Absolute Basophils 0.1 10^3/uL (0-0.2); Absolute Eosinophils 0.1 10^3/uL (0-0.7); Absolute Lymphocytes 0.8 10^3/uL (1.2-3.4); Absolute Monocytes 0.6 10^3/uL (0.1-0.6); Absolute Neutrophils 5.8 10^3/uL (1.4-6.5); Hematocrit 49.1 % (39.0-52.0); Hemoglobin 17.2 g/dL (13.0-18.0); Mean Corpuscular Hgb 33.9 pg (27.0-31.0); Mean Corpuscular Volume 96.7 fL (80.0-94.0); Mean Platelet Volume 12.1 fL (7.4-10.4); Nucleated Red Blood Cells % 0.4 % (-); Platelet Count 121 10^3/uL (130-400); Red Blood Cell Count 5.08 10^6/uL (4.70-6.10); Red Cell Dist. Width 15.2 % (11.5-14.5); White Blood Cell Count 7.5 10^3/uL (4.8-10.8)
[2023-06-21 06:33] LABS: Vancomycin Random 21.1 ug/ml
[2023-06-21 06:43] LABS: ALT (SGPT) 22 U/L (0-50); AST (SGOT) 36 U/L (17-59); Alkaline Phosphatase 114 U/L (38-126); Blood Urea Nitrogen 52 mg/dl (9-20); Calcium 8.6 mg/dl (8.4-10.2); Carbon Dioxide 24 mmol/L (22-30); Chloride 102 mmol/L (98-107); Estimated Creatinine Clearance 32 ml/min; Glucose 89 mg/dl (70-99); Potassium 4.2 mmol/L (3.5-5.1); Sodium 133 mmol/L (135-145); Total Bilirubin 2.6 mg/dl (0.2-1.3); Total Protein 5.3 g/dl (6.3-8.2); eGFR 50.49
[2023-06-21 07:00] VITALS: BP 97/59
--- NOTE | 2023-06-21 08:09 | PHA.VAN.FU ---
Vancomycin Assessment / Plan
- Assessment
Renal Function: Stable (1.4)
WBC's are: WNL
In the past 24 hrs, patient has been: Afebrile
Concomitant Antimicrobials: piperacillin/tazobactam
- Assessment - Therapeutic Drug Monitoring
Random Level: 21.1 - after 750 mg dose 06/19 12:43 (also rec'd 1500 mg on 06/19/23 ~1999)
- Dosing Plan
Continue: dose by random level
Dosing by Level: Hold off on dosing today
- Monitoring Plan
Random Level: repeat random level AM 06/22/23
- Follow Up
Pharmacy will continue to follow.
Vancomycin Follow UP
- -
Patient Age: 82
Patient Sex: Male
Vancomycin Day #: 3
Indication: Pulmonary/Respiratory
Requesting Provider: DANIELA
Pertinent Antimicrobial Allergies:
Allergies
Sulfa (Sulfonamide Antibiotics) Allergy (Verified 06/19/23 15:10)
Rash
cefepime Allergy (Verified 06/19/23 15:10)
Rash
cefuroxime Allergy (Verified 06/19/23 15:10)
Rash
Height / Weight:
Height 5 ft 7 in
Actual Weight 54.233 kg
- Vital Signs / Lab Results
Temp Pulse Resp BP Pulse Ox
97.5 F 62 16 113/62 95
06/21/23 03:50 06/21/23 03:50 06/21/23 03:50 06/21/23 03:50 06/21/23 03:50
Lab Results - Hematology
06/19/23 06/20/23 06/21/23
16:19 06:53 05:32
WBC 7.7 11.3 H 7.5
Lab Results - Chemistry
06/19/23 06/20/23 06/21/23
16:19 06:53 05:32
BUN 62 H 59 H 52 H
Creatinine 1.5 H 1.4 H 1.4 H
Estimated Creat Clear 32 31 32
Albumin 4.0 2.8 L 3.0 L
Microbiology Results
06/19/23 23:11 Blood Culture - Preliminary
Blood/Venous No Growth in 24 hours- Final report to follow
06/19/23 22:07 Blood Culture - Preliminary
Blood/Venous No Growth in 24 hours- Final report to follow
06/20/23 11:31 Nasal Screen MRSA (PCR) - Final
Nose Staph aureus MRSA
06/19/23 20:11 Legionella Urinary Antigen - Final
Urine Negative for Legionella pneumophila Serogroup 1 antigen.
A negative result does not rule out the possiblity of
Legionella infection due to other serogroups or species of
Legionella. Clinical correlation is recommended.
06/19/23 16:55 Influenza Types A & B (SULTANA) - Final
Nasal Swab Negative for Influenza A & B, NAAT
Negative results must be combined with clinical observations
and patient history.
Nucleic Acid Amplification test (NAAT)performed on the
[employer] platform.
Therapeutic Drug Monitoring
Random Vancomycin 21.1 ug/ml 06/21/23 05:32
[2023-06-21] MEDS: ELIQUIS 2.5 MG PO ×2 (08:23→21:48)
[2023-06-21] MEDS: PROSCAR 5 MG PO (08:23)
[2023-06-21] MEDS: PEPCID 20 MG PO (08:23)
[2023-06-21 11:00] VITALS: BP 100/58
--- NOTE | 2023-06-21 11:14 | W.PN.CD ---
Today's Communication / Plan
-
- Holding lasix for BETI
- Likely resume lasix in AM.
Impression / Plan
-
Pneumonia.
-Antibiotics as directed by primary team.
-On Zosyn / Vanco
.
Chronic Heart failure with reduced left ventricular function. Patient with ischemic cardiomyopathy and severe reduced left ventricular function. He has had multiple hospitalizations for heart failure. Last hospitalization was 6 months ago.
Patient's had poor oral intake, and some diarrhea. He thinks he has been still taking his Lasix. With rising creatinine may be a component of volume depletion. Weights however are in a similar range to his previous admission back in December
2022.
-Okay to hold diuretic and monitor renal function closely
- renal function and patient's oral intake improves will consider resuming diuretic. Daily assessment regarding diuretic use
-Cr is still 1.4
-Expected to resume lasix Kin
.
Coronary artery disease/history of [place]/history of LAD stenting. With patient's reduction in left ventricular function and issues with recurrent heart failure repeat cardiac catheterization has been offered in the past. Patient wanted to avoid
additional invasive procedures so we have been continue with medical therapy. Currently without symptoms to suggest angina. Continue medical therapy
.
ICD stable. Currently atrially paced.
.
PAF. Stable. Atrially paced rhythm remains on Eliquis 2.5 twice daily
.
Pleural effusion. History of pleural effusion requiring thoracentesis small effusions noted on chest x-ray. Currently being treated for pneumonia. Continue to monitor.
Physical Exam
Vital Signs/Labs
Vital Signs
Temp Pulse Resp BP Pulse Ox
98.5 F 62 14 97/59 98
06/21/23 07:00 06/21/23 07:00 06/21/23 07:00 06/21/23 07:00 06/21/23 07:00
06/20/23 06/21/23 06/22/23
06:59 06:59 07:59
Actual Weight 53.325 kg 54.233 kg
06/21/23 05:32
06/21/23 05:32
06/19/23
16:19
Cdm-X-[id number] Pept > [id number]
LAB Results
06/19/23 06/19/23 06/20/23
16:19 22:06 06:53
Troponin I 0.069 H* 0.064 H* 0.052 H*
Physical Exam
Constitutional: No acute distress and Comfortable
EENT: Anicteric and Moist mucous membranes
Cardiovascular: Rhythm & rate is regular, JVD present and Systolic murmur present
Respiratory: Respiratory effort normal, Crackles Present and Rhonchi Present
GI: Soft, Non tender and Normal bowel sounds
Neuro/Psych: Alert, Oriented and AO x 3
Data Reviewed
-
Date of Service: June 21, 2023
Medical Decision Making: Reviewed Test Results, Independent Historian Assessment, Test Interpretation and Review of Case with other Provider
EKG: Tracing Personally Visualized and interpreted
Echo: Report Reviewed by me
Labs: Labs Reviewed by me
Old Records: Reviewed
--- NOTE | 2023-06-21 12:19 | W.PN.PUL3 ---
Today's Communication / Plan
-
he is currently stable on room air
acute decompensated HF, EF 10%
not enough fluid to tap
further diuresis per cards team ongoing
RLL with possible aspiration risk, but can at least de-escalate abx to augmentin PO for complete course
Assessment
-
82-year-old male with underlying severe ischemic cardiomyopathy EF 15%, CAD, LAD stent, history of ventilator/trach/gastrostomy tube removed 2019 who has recurrent right pleural effusions and likely has silent aspirator presented with weakness,
decreased appetite noted to have possible pneumonia-pulmonary consulted for pneumonia and shortness of breath 06/20/2023.
Acute decompensated HF exacerbation, proBNP >73051
Small bilateral pleural effusions
Right lower lobe infiltrate-possible aspiration
Aspiration risk/VSE noted with mild-mod dysphagia
BETI
Hyperkalemia
Ischemic cardiomyopathy-EF 10-15%
Mild leukocytosis-WBC 11.3
Mild thrombocytopenia-platelet 121
Elevated total bilirubin 2.9
Non-PR troponin elevation
Hypoalbuminemia
Conditions present prior to admission:
Recent hospitalization 12/2022-CHF, EF 10-15%, PAF
Recurrent right pleural effusion: Status postthoracentesis 09/27/2022, 11/14/2022, 12/18/2022: Transudative
Seen by Dr. Metz 09/2022, [facility] records reviewed
Ischemic cardiomyopathy ejection fraction 10 to 15%
Severe mitral regurgitation
CAD/stent
Cardiac arrest 2019 status post LAD stent/ventilator/trach/gastrostomy tube subsequently removed.
Atrial fibrillation on anticoagulation/amiodarone
Status post ICD
Moderate to severe MR
BPH
Recurrent right pleural effusion status post multiple thoracenteses-transudate.
Plan
98% on room air
Mild respiratory decompensation likely related to CHF and possible superimposed asp PNA
Aspiration precautions
Nebulizers if needed-currently not bronchospastic
Possible ASP PNA
Empiric antibiotics-vancomycin and Zosyn initiated
Procalcitonin negative-unclear whether infiltrates are chronic, some appear to be new, and procalcitonin not always reliable with aspiration
Monitor leukocytosis
MRSA screen +
Speech/VSE eval in past - concerning for mild oral and mild-moderate pharyngeal dysphagia and silent aspiration of consecutive sips of thin liquids via straw
Can de-escalate to Augmentin PO
Speech therapy evaluation
EF 10-15%; proBNP >06068
Gentle diuresis
Monitor renal function-increased from baseline
Correcting electrolyte imbalances
Troponin trend
Amiodarone 100 mg daily continues
Cardiology consultation pending
Monitor hemoglobin and platelet count
Transfuse if needed
Follow isolated total bilirubin elevation
DVT prophylaxis-on Eliquis
Nutrition with aspiration precautions
Early mobilization/physical therapy
Follow-up with Dr. Metz-last seen 02/18/2023-should follow-up in office with full PFTs
Diagnostic data:
Chest x-ray 01/02/2023-moderate pleural-parenchymal airspace disease on the right lung base and right-sided pleural effusion
Chest x-ray 01/11/2023-dense right lower lobe consolidation
Chest x-ray 06/19/2023-bilateral pleural effusions right greater than left with bibasilar atelectasis, consolidation at the right lung base consistent with pneumonia
CT chest 12/14/2021-Dr. Metz ordered right lower lobe pneumonia, no underlying lesion seen
CT chest 03/14/2022-mild residual right lower lobe pneumonia
CT chest 09/23/2022-moderate right pleural effusion and small left pleural effusion, interstitial thickening anterolateral right lung base
CT chest 01/04/2023-moderate right middle lobe and right lower lobe pneumonia associated with moderate to large right pleural effusion
Thoracentesis 09/27/22-- right side-1050 mL straw-colored fluid
Thoracentesis 11/14/2022-right side--900 mL straw-colored fluid
Thoracentesis 12/18/2022-right side--800 mL kolton pleural fluid
TTE 04/30/2022:�EF 10-15%, severe global hypokinesis with only inferior base and mid septum bora, stage III diastolic dysfunction, dilated right ventricle, moderate to severe mitral regurg, mild TR pulm arterial pressure 65 to 70 mmHg
PFT 06/27/22: FVC 3.14/90%, FEV1�2.51/102%, ratio 80%, TLC 4.30/66%, DLCO 11.95/53%, DLCO/VA 2.54/73%.
Subjective Data
-
Date of Service:
Date of Service: June 21, 2023
Chief Complaint: Pulmonary Follow Up
Subjective:
currently stable on room air
lasix on hold due to beti
Objective Data
Data Reviewed
Vital Signs / I&O / Oxygen:
Vital Signs
Temp Pulse Resp BP Pulse Ox
98.5 F 62 14 97/59 98
06/21/23 07:00 06/21/23 07:00 06/21/23 07:00 06/21/23 07:00 06/21/23 07:00
Intake and Output
06/20/23 06/21/23 06/22/23
06:59 06:59 07:59
Intake Total 600 / 600 120 / 120
Output Total 525 / 525
Balance 600 / 600 -405 / -405
SaO2 98
Physical Exam
General: Comfortable, Poor Appetite and Other (NAD)
HEENT: Normocephalic, Anicteric and Moist Mucous Membranes
Cardiovascular: S1-S2 and Regular Rhythm
Respiratory: Clear and Non-Labored Respirations
GI: Soft, Non Distended and Non Tender
Neurology: Awake, Alert, Oriented, AO x 3 and No Motor Deficits
Skin: Warm, Dry and Good Color
Labs/Micro/Reports
Lab Data
06/21/23 05:32
06/21/23 05:32
Microbiology
06/19/23 23:11 Blood/Venous Blood Culture - Preliminary
No Growth in 24 hours- Final report to follow
06/19/23 22:07 Blood/Venous Blood Culture - Preliminary
No Growth in 24 hours- Final report to follow
06/20/23 11:31 Nose Nasal Screen MRSA (PCR) - Final
Staph aureus MRSA
06/19/23 20:11 Urine Legionella Urinary Antigen - Final
Negative for Legionella pneumophila Serogroup 1 antigen.
A negative result does not rule out the possiblity of
Legionella infection due to other serogroups or species of
Legionella. Clinical correlation is recommended.
06/19/23 16:55 Nasal Swab Influenza Types A & B (SULTANA) - Final
Negative for Influenza A & B, NAAT
Negative results must be combined with clinical observations
and patient history.
Nucleic Acid Amplification test (NAAT)performed on the
[employer] platform.
[2023-06-21 15:00] VITALS: BP 104/62
--- NOTE | 2023-06-21 15:39 | W.PN.HOSP.TC ---
Today's Communication/Plan
-
PT/OT
Assessment / Plan
Assessment / Plan
#Weakness secondary to right lower lobe pneumonia, small bilateral pleural effusions
#History of possible silent aspiration video swallow with delay of contrast in the distal esophagus patient declined further evaluation in December 2022
# History of recurrent right pleural effusion requiring thoracentesis in past
COVID/flu negative
-Consult pulmonary - input appreciated
-Speech swallow eval
-Sputum culture
-Incentive spirometry
-IV vancomycin, IV Zosyn
-Follow CBC, BMP
WBC 11.3-->7.5
#BETI secondary to dehydration
Creat 1.5-->1.4-->1.4 was 0.9 12/2022
-250 cc NSS given in ER
-Give additional NSS 80 cc an hour x 500 cc total
-Follow BMP
#Hyperkalemia likely secondary to dehydration
K5.6-->4.6-->4.2
Single dose Lokelma 10 g p.o. now
-Follow BMP
#Ischemic cardiomyopathy/severe 10-15% December 2022
I/O, daily weights
-Continue metoprolol
-Hold torsemide due to BETI/dehydration
-Consult [facility]ology - input appreciated
TTE 04/30/2022:�EF 10-15%, severe global hypokinesis with only inferior base and mid septum bora, stage III diastolic dysfunction, dilated right ventricle, moderate to severe mitral regurg, mild TR pulm arterial pressure 65 to 70 mmHg
#Cardiac arrest times 14 October 2019-status post stent LAD 09/2019
#Required trach and PEG tube both removed 2019
#Defibrillator/pacemaker 05/22/2020
#CAD
Continue aspirin, atorvastatin
#Paroxysmal A-fib
-Continue Eliquis 2.5 mg twice daily, amiodarone, metoprolol
#GERD
-Continue Pepcid 20 mg twice daily
#Anxiety/depression
-Continue Lexapro 5 mg at bedtime
Other PMH
BPH-continue finasteride 5 mg daily
Renal calculi
DVT prophylaxis
Continue Eliquis
DNR per patient with Lauren at bedside
Anticipated Discharge: > 48 hours
Subjective/Interval History
-
Date of Service: June 21, 2023
overall looks better, sitting up eating breakfast when seen by me
Objective Data
-
Labs:
Laboratory Results
06/21/23
05:32
WBC 7.5
Hgb 17.2
Hct 49.1
Plt Count 121 L
Sodium 133 L
Potassium 4.2
Chloride 102
Carbon Dioxide 24
BUN 52 H
Creatinine 1.4 H
Glucose 89
Calcium 8.6
Total Bilirubin 2.6 H
AST 36
ALT 22
Alkaline Phosphatase 114
Vital Signs:
Vital Signs
Temp Pulse Resp BP Pulse Ox
98.5 F 67 16 100/58 98
06/21/23 11:00 06/21/23 11:00 06/21/23 11:00 06/21/23 11:00 06/21/23 11:00
I&O
06/20/23 06/21/23 06/22/23
06:59 06:59 07:59
Intake Total 600 / 600 120 / 120
Output Total 525 / 525
Balance 600 / 600 -405 / -405
Review of Systems
-
History Source: Patient
Constitutional: Reports No Symptoms
Respiratory: Reports Cough and Hemoptysis
Cardiac: Reports No Symptoms
Abdomen/GI: Reports No Symptoms
Genitourinary: Reports Hesitancy (with normal voiding)
Musculoskeletal: Reports No Symptoms
Skin: Reports No Symptoms
Neuro: Reports No Symptoms
Physical Exam
-
General: No Apparent Distress, Comfortable and Cachectic
HEENT: Normocephalic
Respiratory: Non Labored Respirations and Decreased Breath Sounds (in right lower lobes)
Cardiac: Regular Rhythm
GI: Soft, Nontender, Nondistended and Flat
Genito-urinary: Clear Urine
Musculoskeletal: No Clubbing
Skin: Warm and Dry
Neuro: Awake, Alert, Oriented, Nonfocal/Grossly Intact and Other (voice is stronger)
Psych: Calm
[2023-06-21 19:53] VITALS: BP 110/68
[2023-06-21] MEDS: LEXAPRO 5 MG PO (21:47)
[2023-06-21] MEDS: TOPROL XL 12.5 MG PO (21:48)
[2023-06-21] MEDS: ASPIR LOW (ENTERIC COATED) 81 MG PO (21:48)
[2023-06-21] MEDS: PACERONE 100 MG PO (21:49)
[2023-06-21] MEDS: MELATONIN 5 MG PO (23:11)
[2023-06-21 23:59] VITALS: BP 104/67
[2023-06-22 03:34] VITALS: BP 113/65
[2023-06-22] MEDS: ZOSYN 50 IV ×4 (05:31→23:30)
[2023-06-22 06:00] VITALS: BMI 18.5
[2023-06-22 07:08] LABS: % Basophils 0.6 % (0-2); % Eosinophils 1.4 % (0-6); % Immature Granulocytes 0.3 % (0-0.5); % Lymphocytes 11.3 % (20.5-51.1); % Monocytes 9.6 % (1.7-9.3); % Neutrophils 76.8 % (42.2-75.2); Absolute Eosinophils 0.1 10^3/uL (0-0.7); Absolute Lymphocytes 0.7 10^3/uL (1.2-3.4); Absolute Monocytes 0.6 10^3/uL (0.1-0.6); Absolute Neutrophils 4.9 10^3/uL (1.4-6.5); Hematocrit 44.9 % (39.0-52.0); Hemoglobin 15.8 g/dL (13.0-18.0); Mean Corp Hgb Conc. 35.2 g/dL (33.0-37.0); Mean Corpuscular Hgb 34.3 pg (27.0-31.0); Mean Corpuscular Volume 97.4 fL (80.0-94.0); Nucleated Red Blood Cells % 0.3 % (-); Red Blood Cell Count 4.61 10^6/uL (4.70-6.10); Red Cell Dist. Width 15.2 % (11.5-14.5); White Blood Cell Count 6.4 10^3/uL (4.8-10.8)
[2023-06-22 07:19] LABS: Vancomycin Random 13.1 ug/ml
[2023-06-22 07:25] LABS: ALT (SGPT) 19 U/L (0-50); AST (SGOT) 34 U/L (17-59); Albumin 2.6 g/dl (3.5-5.0); Alkaline Phosphatase 103 U/L (38-126); Blood Urea Nitrogen 46 mg/dl (9-20); Calcium 8.1 mg/dl (8.4-10.2); Carbon Dioxide 23 mmol/L (22-30); Chloride 104 mmol/L (98-107); Estimated Creatinine Clearance 37 ml/min; Glucose 101 mg/dl (70-99); Potassium 4.1 mmol/L (3.5-5.1); Total Protein 4.8 g/dl (6.3-8.2); eGFR > 60.00
[2023-06-22 07:32] VITALS: BP 108/68
[2023-06-22 07:32] LABS: Sodium 132 mmol/L (135-145)
[2023-06-22] MEDS: DEMADEX 20 MG PO (08:20)
[2023-06-22] MEDS: PROSCAR 5 MG PO (08:20)
[2023-06-22] MEDS: PEPCID 20 MG PO (08:20)
[2023-06-22] MEDS: ELIQUIS 2.5 MG PO ×2 (08:20→21:25)
--- NOTE | 2023-06-22 09:16 | PHA.VAN.FU ---
Vancomycin Assessment / Plan
- Assessment
Renal Function: SCR Decreasing (1.4->1.2)
WBC's are: WNL
In the past 24 hrs, patient has been: Hypothermic
Concomitant Antimicrobials: Piperacillin/tazobactam
- Assessment - Therapeutic Drug Monitoring
Random Level: 13.1
- Dosing Plan
Continue: dose by random levels
Dosing by Level: Re-dose today (750 mg x 1 dose ( ~14 mg/kg))
- Monitoring Plan
Random Level: repeat random level AM 06/23/23
- Follow Up
Pharmacy will continue to follow.
Vancomycin Follow UP
- -
Patient Age: 82
Patient Sex: Male
Vancomycin Day #: 4
Indication: Pulmonary/Respiratory
Requesting Provider: DANIELA
Pertinent Antimicrobial Allergies:
Allergies
Sulfa (Sulfonamide Antibiotics) Allergy (Verified 06/19/23 15:10)
Rash
cefepime Allergy (Verified 06/19/23 15:10)
Rash
cefuroxime Allergy (Verified 06/19/23 15:10)
Rash
Height / Weight:
Height 5 ft 7 in
Actual Weight 53.581 kg
- Vital Signs / Lab Results
Temp Pulse Resp BP Pulse Ox
97.3 F 81 20 108/61 97
06/22/23 07:32 06/22/23 08:20 06/22/23 07:32 06/22/23 08:20 06/22/23 07:32
Lab Results - Hematology
06/19/23 06/20/23 06/21/23
16:19 06:53 05:32
WBC 7.7 11.3 H 7.5
06/22/23
06:23
WBC 6.4
Lab Results - Chemistry
03/07/24 03/08/24 03/09/24
16:19 06:53 05:32
BUN 62 H 59 H 52 H
Creatinine 1.5 H 1.4 H 1.4 H
Estimated Creat Clear 32 31 32
Albumin 4.0 2.8 L 3.0 L
06/22/23
06:23
BUN 46 H
Creatinine 1.2
Estimated Creat Clear 37
Albumin 2.6 L
Microbiology Results
06/19/23 23:11 Blood Culture - Preliminary
Blood/Venous No Growth in 48 hours- Final report to follow
06/19/23 22:07 Blood Culture - Preliminary
Blood/Venous No Growth in 48 hours- Final report to follow
06/20/23 11:31 Nasal Screen MRSA (PCR) - Final
Nose Staph aureus MRSA
06/19/23 20:11 Legionella Urinary Antigen - Final
Urine Negative for Legionella pneumophila Serogroup 1 antigen.
A negative result does not rule out the possiblity of
Legionella infection due to other serogroups or species of
Legionella. Clinical correlation is recommended.
Therapeutic Drug Monitoring
Random Vancomycin 13.1 ug/ml 06/22/23 06:23
[2023-06-22] MEDS: VANCOCIN 150 IV (09:32)
--- NOTE | 2023-06-22 09:51 | W.PN.CD ---
Today's Communication / Plan
-
- Hold Lasix
Impression / Plan
-
Pneumonia.
-Antibiotics as directed by primary team.
-On Zosyn / Vanco
.
Chronic Heart failure with reduced left ventricular function. Patient with ischemic cardiomyopathy and severe reduced left ventricular function. He has had multiple hospitalizations for heart failure. Last hospitalization was 6 months ago.
Patient's had poor oral intake, and some diarrhea. He thinks he has been still taking his Lasix. With rising creatinine may be a component of volume depletion. Weights however are in a similar range to his previous admission back in December
2022.
-Okay to hold diuretic and monitor renal function closely
- renal function and patient's oral intake improves will consider resuming diuretic. Daily assessment regarding diuretic use
-Cr is imporving now.
- Still appears volume depleted
- Holding lasix- Expected to resume lasix in AM
.
Coronary artery disease/history of [place]/history of LAD stenting. With patient's reduction in left ventricular function and issues with recurrent heart failure repeat cardiac catheterization has been offered in the past. Patient wanted to avoid
additional invasive procedures so we have been continue with medical therapy. Currently without symptoms to suggest angina. Continue medical therapy
.
ICD stable. Currently atrially paced.
.
PAF. Stable. Atrially paced rhythm remains on Eliquis 2.5 twice daily
.
Pleural effusion. History of pleural effusion requiring thoracentesis small effusions noted on chest x-ray. Currently being treated for pneumonia. Continue to monitor.
Physical Exam
Vital Signs/Labs
Vital Signs
Temp Pulse Resp BP Pulse Ox
97.3 F 81 20 108/61 97
06/22/23 07:32 06/22/23 08:20 06/22/23 07:32 06/22/23 08:20 06/22/23 07:32
06/21/23 06/22/23 06/23/23
05:59 06:59 06:59
Actual Weight
06/22/23 06:23
06/22/23 06:23
06/19/23
16:19
Nyy-W-Gzkztfocokh Pept > 02556
LAB Results
06/19/23 06/19/23 06/20/23
16:19 22:06 06:53
Troponin I 0.069 H* 0.064 H* 0.052 H*
Physical Exam
Constitutional: No acute distress and Comfortable
EENT: Anicteric and Moist mucous membranes
Cardiovascular: Rhythm & rate is regular, Pedal edema is absent and JVD pressure is normal
Respiratory: Respiratory effort normal, Wheeze Absent and Crackles Absent
GI: Soft, Non tender and Normal bowel sounds
Neuro/Psych: Alert, Oriented and AO x 3
Data Reviewed
-
Date of Service: June 22, 2023
Medical Decision Making: Reviewed Test Results, Independent Historian Assessment and Test Interpretation
EKG: Tracing Personally Visualized and interpreted
Echo: Report Reviewed by me
Labs: Labs Reviewed by me
Old Records: Reviewed
[2023-06-22 11:56] VITALS: BP 101/62
--- NOTE | 2023-06-22 12:30 | W.PN.PUL3 ---
Today's Communication / Plan
-
Lasix on hold, repeat CXR showing reaccumulation on R
He is still currently stable on RA
We have discussed getting OOB/PT
Abx will be complete at 5 days tomorrow, will add stop date
Otherwise no further recs from our standpoint, needs optimal diuresis at this point
We will sign off at this time, please call with questions
Assessment
-
82-year-old male with underlying severe ischemic cardiomyopathy EF 15%, CAD, LAD stent, history of ventilator/trach/gastrostomy tube removed 2019 who has recurrent right pleural effusions and likely has silent aspirator presented with weakness,
decreased appetite noted to have possible pneumonia-pulmonary consulted for pneumonia and shortness of breath 06/20/2023.
Acute decompensated HF exacerbation, proBNP >25635
Small bilateral pleural effusions
Right lower lobe infiltrate-possible aspiration
Aspiration risk/VSE noted with mild-mod dysphagia
BETI
Hyperkalemia
Ischemic cardiomyopathy-EF 10-15%
Mild leukocytosis-WBC 11.3
Mild thrombocytopenia-platelet 121
Elevated total bilirubin 2.9
Non-OH troponin elevation
Hypoalbuminemia
Conditions present prior to admission:
Recent hospitalization 12/2022-CHF, EF 10-15%, PAF
Recurrent right pleural effusion: Status postthoracentesis 09/27/2022, 11/14/2022, 12/18/2022: Transudative
Seen by Dr. Metz 09/2022, [facility] records reviewed
Ischemic cardiomyopathy ejection fraction 10 to 15%
Severe mitral regurgitation
CAD/stent
Cardiac arrest 2019 status post LAD stent/ventilator/trach/gastrostomy tube subsequently removed.
Atrial fibrillation on anticoagulation/amiodarone
Status post ICD
Moderate to severe MR
BPH
Recurrent right pleural effusion status post multiple thoracenteses-transudate.
Plan
98% on room air
Mild respiratory decompensation likely related to CHF and possible superimposed asp PNA
Aspiration precautions
Nebulizers if needed-currently not bronchospastic
Possible ASP PNA
Empiric antibiotics-vancomycin and Zosyn initiated
Procalcitonin negative-unclear whether infiltrates are chronic, some appear to be new, and procalcitonin not always reliable with aspiration
Monitor leukocytosis
MRSA screen +
Speech/VSE eval in past - concerning for mild oral and mild-moderate pharyngeal dysphagia and silent aspiration of consecutive sips of thin liquids via straw
Speech therapy evaluation
EF 10-15%; proBNP >28084
Gentle diuresis
Monitor renal function-increased from baseline
Correcting electrolyte imbalances
Troponin trend
Amiodarone 100 mg daily continues
Cardiology following
Repeat CXR showing reaccumulation
Monitor hemoglobin and platelet count
Transfuse if needed
Follow isolated total bilirubin elevation
DVT prophylaxis-on Eliquis
Nutrition with aspiration precautions
Early mobilization/physical therapy
Follow-up with Dr. Metz-last seen 02/18/2023-should follow-up in office with full PFTs
Diagnostic data:
Chest x-ray 01/02/2023-moderate pleural-parenchymal airspace disease on the right lung base and right-sided pleural effusion
Chest x-ray 01/11/2023-dense right lower lobe consolidation
Chest x-ray 06/19/2023-bilateral pleural effusions right greater than left with bibasilar atelectasis, consolidation at the right lung base consistent with pneumonia
CT chest 12/14/2021-Dr. Metz ordered right lower lobe pneumonia, no underlying lesion seen
CT chest 03/14/2022-mild residual right lower lobe pneumonia
CT chest 09/23/2022-moderate right pleural effusion and small left pleural effusion, interstitial thickening anterolateral right lung base
CT chest 01/04/2023-moderate right middle lobe and right lower lobe pneumonia associated with moderate to large right pleural effusion
Thoracentesis 09/27/22-- right side-1050 mL straw-colored fluid
Thoracentesis 11/14/2022-right side--900 mL straw-colored fluid
Thoracentesis 12/18/2022-right side--800 mL kolton pleural fluid
TTE 04/30/2022:�EF 10-15%, severe global hypokinesis with only inferior base and mid septum bora, stage III diastolic dysfunction, dilated right ventricle, moderate to severe mitral regurg, mild TR pulm arterial pressure 65 to 70 mmHg
PFT 06/27/22: FVC 3.14/90%, FEV1�2.51/102%, ratio 80%, TLC 4.30/66%, DLCO 11.95/53%, DLCO/VA 2.54/73%.
Subjective Data
-
Date of Service:
Date of Service: June 22, 2023
Chief Complaint: Pulmonary Follow Up
Subjective:
doing well, stable on room air
family notes that he has been refusing to walk/get OOB
no new complaints
does admit he feels depressed
Objective Data
Data Reviewed
Vital Signs / I&O / Oxygen:
Vital Signs
Temp Pulse Resp BP Pulse Ox
97.1 F 64 20 101/62 100
06/22/23 11:56 06/22/23 11:56 06/22/23 11:56 06/22/23 11:56 06/22/23 11:56
Intake and Output
06/21/23 06/22/23 06/23/23
05:59 06:59 06:59
Intake Total
Output Total
Balance
SaO2 100
Physical Exam
General: Comfortable, Poor Appetite and Other (NAD)
HEENT: Normocephalic, Anicteric and Moist Mucous Membranes
Cardiovascular: S1-S2 and Regular Rhythm
Respiratory: Clear and Non-Labored Respirations
GI: Soft, Non Distended and Non Tender
Neurology: Awake, Alert, Oriented, AO x 3 and No Motor Deficits
Skin: Warm, Dry and Good Color
Labs/Micro/Reports
Lab Data
06/22/23 06:23
06/22/23 06:23
Microbiology
06/19/23 23:11 Blood/Venous Blood Culture - Preliminary
No Growth in 48 hours- Final report to follow
06/19/23 22:07 Blood/Venous Blood Culture - Preliminary
No Growth in 48 hours- Final report to follow
06/20/23 11:31 Nose Nasal Screen MRSA (PCR) - Final
Staph aureus MRSA
06/19/23 20:11 Urine Legionella Urinary Antigen - Final
Negative for Legionella pneumophila Serogroup 1 antigen.
A negative result does not rule out the possiblity of
Legionella infection due to other serogroups or species of
Legionella. Clinical correlation is recommended.
06/19/23 16:55 Nasal Swab Influenza Types A & B (SULTANA) - Final
Negative for Influenza A & B, NAAT
Negative results must be combined with clinical observations
and patient history.
Nucleic Acid Amplification test (NAAT)performed on the
[employer] platform.
--- NOTE | 2023-06-22 13:13 | CM ---
Addendum entered by Sushma Del Cid 06/22/23 14:42:
Will need referral sent if agreeable, [employer] not working properly.
Original Note:
CM spoke with pt at bedside.
Pt is unsure if he wants SNF, but will talk with his .
Pt was agreeable to referral sent to [facility] for dc planning.
--- NOTE | 2023-06-22 13:27 | W.PN.HOSP.TC ---
Today's Communication/Plan
-
continue current Tx
Assessment / Plan
Assessment / Plan
#Weakness secondary to right lower lobe pneumonia, small bilateral pleural effusions
#History of possible silent aspiration video swallow with delay of contrast in the distal esophagus patient declined further evaluation in December 2022
# History of recurrent right pleural effusion requiring thoracentesis in past
input of pulm appreciated, does not believe enough fluid to tap
COVID/flu negative
-Consult pulmonary - input appreciated
-Speech swallow eval
-Sputum culture - over contamination with oropharyngeal gamaliel
Nasal swab +MRSA
-Incentive spirometry
-IV vancomycin, IV Zosyn
-Follow CBC, BMP
WBC 11.3-->7.5
CXR 06/21: Worsening right lower lobe pneumonia with small right pleural effusion
New small left pleural effusion
Moderate cardiomegaly without associated pulmonary edema
#BETI secondary to dehydration
Creat 1.5-->1.4-->1.4-->1.2 (was 0.9 12/2022)
-Follow BMP
timing of resumption of diuretic, as per Cardio
#Hyperkalemia likely secondary to dehydration
K5.6-->4.6-->4.2-->4.1
Single dose Lokelma 10 g p.o. given
resolved
#Ischemic cardiomyopathy/severe 10-15% December 2022
I/O, daily weights
-Continue metoprolol
-Hold torsemide due to BETI/dehydration
-Consult [facility] cardiology - input appreciated
TTE 04/30/2022:�EF 10-15%, severe global hypokinesis with only inferior base and mid septum bora, stage III diastolic dysfunction, dilated right ventricle, moderate to severe mitral regurg, mild TR pulm arterial pressure 65 to 70 mmHg
#Cardiac arrest times 14 October 2019-status post stent LAD 09/2019
#Required trach and PEG tube both removed 2019
#Defibrillator/pacemaker 05/22/2020
#CAD
Continue aspirin, atorvastatin
#Paroxysmal A-fib
-Continue Eliquis 2.5 mg twice daily, amiodarone, metoprolol
#GERD
-Continue Pepcid 20 mg twice daily
#Anxiety/depression
-Continue Lexapro 5 mg at bedtime
Other PMH
BPH-continue finasteride 5 mg daily
Renal calculi
DVT prophylaxis
Continue Eliquis
reviewed clinical course with pt and at bedside 06/21
DNR per patient with Lauren at bedside
Anticipated Discharge: 24 - 48 hours
Subjective/Interval History
-
Date of Service: June 22, 2023
Looks better, voice is stronger, feels not quite back to baseline
Objective Data
-
Labs:
Laboratory Results
06/22/23
06:23
WBC 6.4
Hgb 15.8
Hct 44.9
Plt Count
Sodium 132 L
Potassium 4.1
Chloride 104
Carbon Dioxide 23
BUN 46 H
Creatinine 1.2
Glucose 101 H
Calcium 8.1 L
Total Bilirubin 2.0 H
AST 34
ALT 19
Alkaline Phosphatase 103
Vital Signs:
Vital Signs
Temp Pulse Resp BP Pulse Ox
97.1 F 64 20 101/62 100
06/22/23 11:56 06/22/23 11:56 06/22/23 11:56 06/22/23 11:56 06/22/23 11:56
I&O
06/21/23 06/22/23 06/23/23
05:59 06:59 06:59
Intake Total
Output Total
Balance
Review of Systems
-
History Source: Patient
Constitutional: Reports No Symptoms
Respiratory: Reports Cough and Hemoptysis
Cardiac: Reports No Symptoms
Abdomen/GI: Reports No Symptoms
Genitourinary: Reports Hesitancy (with normal voiding)
Musculoskeletal: Reports No Symptoms
Skin: Reports No Symptoms
Neuro: Reports No Symptoms
Physical Exam
-
General: No Apparent Distress, Comfortable and Cachectic
HEENT: Normocephalic
Respiratory: Non Labored Respirations and Decreased Breath Sounds (in right lower lobes)
Cardiac: Regular Rhythm
GI: Soft, Nontender, Nondistended and Flat
Genito-urinary: Clear Urine
Musculoskeletal: No Clubbing
Skin: Warm and Dry
Neuro: Awake, Alert, Oriented, Nonfocal/Grossly Intact and Other (voice is stronger)
Psych: Calm
[2023-06-22 15:23] VITALS: BP 103/64
[2023-06-22 19:51] VITALS: BP 107/63
[2023-06-22] MEDS: PACERONE 100 MG PO (21:22)
[2023-06-22] MEDS: ASPIR LOW (ENTERIC COATED) 81 MG PO (21:22)
[2023-06-22] MEDS: MELATONIN 5 MG PO (21:22)
[2023-06-22] MEDS: LEXAPRO 5 MG PO (21:25)
[2023-06-22] MEDS: TOPROL XL PO (21:28)
[2023-06-22 23:09] VITALS: BP 104/58
[2023-06-23] MEDS: ZOSYN 50 IV ×3 (05:38→17:03)
[2023-06-23 06:00] VITALS: BMI 18.3
[2023-06-23 07:15] VITALS: BP 102/64
[2023-06-23] MEDS: PEPCID 20 MG PO (08:21)
[2023-06-23] MEDS: DEMADEX 20 MG PO (08:21)
[2023-06-23] MEDS: ELIQUIS 2.5 MG PO ×2 (08:23→20:35)
[2023-06-23] MEDS: PROSCAR PO (08:23)
[2023-06-23 08:41] LABS: Vancomycin Random 14.9 ug/ml
--- NOTE | 2023-06-23 09:07 | W.PN.CD ---
Today's Communication / Plan
-
Resume torsemide
We will sign off please call with questions/concerns.
Impression / Plan
-
Pneumonia.
-Antibiotics as directed by primary team.
-On Zosyn / Vanco
.
Chronic Heart failure with severely reduced left ventricular function. Patient with ischemic cardiomyopathy and severe reduced left ventricular function. He has had multiple hospitalizations for heart failure. Last hospitalization was 6 months
ago.
Patient's had poor oral intake, and some diarrhea. He thinks he has been still taking his Lasix. With rising creatinine may be a component of volume depletion. Weights however are in a similar range to his previous admission back in December
2022.
-Okay to hold diuretic and monitor renal function closely
-as renal function and patient's oral intake improves will consider resuming diuretic. Daily assessment regarding diuretic use
-Cr is imporving now.
- resume torsemide daily
.
Coronary artery disease/history of NV/history of LAD stenting. With patient's reduction in left ventricular function and issues with recurrent heart failure repeat cardiac catheterization has been offered in the past. Patient wanted to avoid
additional invasive procedures so we have been continue with medical therapy. Currently without symptoms to suggest angina. Continue medical therapy
.
ICD stable. Currently atrially paced.
.
PAF. Stable. Atrially paced rhythm remains on Eliquis 2.5 twice daily
.
Pleural effusion. History of pleural effusion requiring thoracentesis small effusions noted on chest x-ray. Currently being treated for pneumonia. Continue to monitor.
Physical Exam
Vital Signs/Labs
Vital Signs
Temp Pulse Resp BP Pulse Ox
97.3 F 65 20 102/64 96
06/23/23 07:15 06/23/23 07:15 06/23/23 07:15 06/23/23 07:15 06/23/23 07:15
06/22/23 06/23/23 06/24/23
06:59 06:59 06:59
Actual Weight 116 lb 9 oz
06/22/23 06:23
06/22/23 06:23
06/19/23
16:19
[id number] Pept > [id number]
Physical Exam
Constitutional: No acute distress
EENT: Anicteric
Cardiovascular: Rhythm & rate is regular and Pedal edema is absent
Respiratory: Respiratory effort normal and Lungs clear to auscul.
GI: Soft
Neuro/Psych: AO x 3
Data Reviewed
-
Date of Service: June 23, 2023
EKG: Tracing Personally Visualized and interpreted
Echo: Report Reviewed by me
Labs: Labs Reviewed by me
--- NOTE | 2023-06-23 09:37 | PHA.VAN.FU ---
Addendum entered and electronically signed by Akila Robertson [facility] 06/23/23 13:54:
Per Dr Sampson orders, Vancomycin and other abx to d/c end of day 06/22. Will d/c vanc level for 06/24
Original Note:
Vancomycin Assessment / Plan
- Assessment
Renal Function: SCR Decreasing (at baseline, but BUN still slightly elevated)
WBC's are: WNL
In the past 24 hrs, patient has been: Afebrile
Concomitant Antimicrobials: piperacillin-tazobactam
- Assessment - Therapeutic Drug Monitoring
Random Level: 14.9 ~22 hours post 750 mg dose
- Dosing Plan
Adjust Regimen to: vanc 500mg q24h
New Regimen Predicts: AUC (392), Peak (23.8), Trough (10.6)
Dosing by Level: Re-dose today
Dosing in 12/2022 was vanc 750 mg q24h - revealed AUC 545, cmax 29.6, cmin 16.9, t1/2 28 h
SCr returning to baseline, BUN still elevated but based on previous admissions, it appears to be baseline.
half-life on 06/21, based on dosing from 06/19&06/18 = 36 H
Cautiously starting vanc 500 mg IV q24h with close monitoring.
- Monitoring Plan
Trough Level: 06/24 829
Random Level: 06/25 529
- Follow Up
Pharmacy will continue to follow.
Vancomycin Follow UP
- -
Patient Age: 82
Patient Sex: Male
Vancomycin Day #: 5
Indication: Pulmonary/Respiratory
Requesting Provider: Reid Donovan
Pertinent Antimicrobial Allergies:
Allergies
Sulfa (Sulfonamide Antibiotics) Allergy (Verified 06/19/23 15:10)
Rash
cefepime Allergy (Verified 06/19/23 15:10)
Rash
cefuroxime Allergy (Verified 06/19/23 15:10)
Rash
Height / Weight:
Height 5 ft 7 in
Actual Weight 52.872 kg
Pertinent Past Medical History: recurrent R pleural effusions, aspiration risk, acute decompensated HF
- Vital Signs / Lab Results
Temp Pulse Resp BP Pulse Ox
97.3 F 65 20 102/64 96
06/23/23 07:15 06/23/23 07:15 06/23/23 07:15 06/23/23 07:15 06/23/23 07:15
Lab Results - Hematology
06/21/23 06/22/23
05:32 06:23
WBC 7.5 6.4
Lab Results - Chemistry
06/21/23 06/22/23
05:32 06:23
BUN 52 H 46 H
Creatinine 1.4 H 1.2
Estimated Creat Clear 32 37
Albumin 3.0 L 2.6 L
Microbiology Results
06/19/23 23:11 Blood Culture - Preliminary
Blood/Venous No Growth in 72 hours- Final report to follow
06/19/23 22:07 Blood Culture - Preliminary
Blood/Venous No Growth in 72 hours- Final report to follow
Therapeutic Drug Monitoring
Random Vancomycin 14.9 ug/ml 06/23/23 06:46
[2023-06-23] MEDS: VANCOCIN HCL 500 MG 100 IV (10:43)
--- NOTE | 2023-06-23 14:36 | W.PN.HOSP.TC ---
Today's Communication/Plan
-
complete abx tomorrow
Assessment / Plan
Assessment / Plan
#Weakness secondary to right lower lobe pneumonia, small bilateral pleural effusions
abx to complete tomorrow
#History of possible silent aspiration video swallow with delay of contrast in the distal esophagus patient declined further evaluation in December 2022
# History of recurrent right pleural effusion requiring thoracentesis in past
input of pulm appreciated, does not believe enough fluid to tap
COVID/flu negative
-Speech swallow eval - not showing signs of aspiration
-Sputum culture - over contamination with oropharyngeal gamaliel
Nasal swab +MRSA
-Incentive spirometry
- IV Zosyn
-Follow CBC, BMP
WBC 11.3-->7.5
CXR 06/21: Worsening right lower lobe pneumonia with small right pleural effusion
New small left pleural effusion
Moderate cardiomegaly without associated pulmonary edema
#BETI secondary to dehydration
Creat 1.5-->1.4-->1.4-->1.2 (was 0.9 12/2022)
-Follow BMP
timing of resumption of diuretic, as per Cardio
#Hyperkalemia likely secondary to dehydration
K5.6-->4.6-->4.2-->4.1
Single dose Lokelma 10 g p.o. given
resolved
#Ischemic cardiomyopathy/severe 10-15% December 2022
I/O, daily weights
-Continue metoprolol
-Hold torsemide due to BETI/dehydration
-Consult [facility] cardiology - input appreciated
TTE 04/30/2022:�EF 10-15%, severe global hypokinesis with only inferior base and mid septum bora, stage III diastolic dysfunction, dilated right ventricle, moderate to severe mitral regurg, mild TR pulm arterial pressure 65 to 70 mmHg
#Cardiac arrest times 14 October 2019-status post stent LAD 09/2019
#Required trach and PEG tube both removed 2019
#Defibrillator/pacemaker 05/22/2020
#CAD
Continue aspirin, atorvastatin
#Paroxysmal A-fib
-Continue Eliquis 2.5 mg twice daily, amiodarone, metoprolol
#GERD
-Continue Pepcid 20 mg twice daily
#Anxiety/depression
-Continue Lexapro 5 mg at bedtime
Other PMH
BPH-continue finasteride 5 mg daily
Renal calculi
DVT prophylaxis
Continue Eliquis
reviewed clinical course with pt and at bedside 06/22
Cardio and Pulm have signed off
DNR per patient with Lauren at bedside
Anticipated Discharge: 24 - 48 hours
Subjective/Interval History
-
Date of Service: June 23, 2023
Looks great. Sitting in chair
Objective Data
-
Vital Signs:
Vital Signs
Temp Pulse Resp BP Pulse Ox
97.3 F 65 20 102/64 96
06/23/23 07:15 06/23/23 07:15 06/23/23 07:15 06/23/23 07:15 06/23/23 07:15
I&O
06/22/23 06/23/23 06/24/23
06:59 06:59 06:59
Intake Total 970 / 970
Output Total 525 / 525
Balance 445 / 445
Review of Systems
-
History Source: Patient
Constitutional: Reports No Symptoms
Respiratory: Reports Cough and Hemoptysis
Cardiac: Reports No Symptoms
Abdomen/GI: Reports No Symptoms
Genitourinary: Reports Hesitancy (with normal voiding)
Musculoskeletal: Reports No Symptoms
Skin: Reports No Symptoms
Neuro: Reports No Symptoms
Physical Exam
-
General: No Apparent Distress, Comfortable and Cachectic
HEENT: Normocephalic
Respiratory: Non Labored Respirations and Decreased Breath Sounds (in right lower lobe, improved)
Cardiac: Regular Rhythm and S1/S2
GI: Soft, Nontender, Nondistended and Flat
Genito-urinary: Clear Urine
Musculoskeletal: No Clubbing
Skin: Warm and Dry
Neuro: Awake, Alert, Oriented, Nonfocal/Grossly Intact and Other (voice is stronger)
Psych: Calm
[2023-06-23 15:30] VITALS: BP 103/62
--- NOTE | 2023-06-23 16:19 | CM ---
Patient's plan is to return to home at discharge with visiting nurses options reviewed and patient has selected [facility].
Plan; Home with [facility].
--- NOTE | 2023-06-23 16:57 | PTCARENOTE ---
Patient received awake and alert, one assist out of bed to chair wile while visited. Tolerated short period of time out of bed. Voids in urinal . Denies pain or discomfort. Resting at present.
[2023-06-23 19:50] VITALS: BP 100/63
[2023-06-23] MEDS: ASPIR LOW (ENTERIC COATED) 81 MG PO (20:35)
[2023-06-23 22:01] VITALS: BP 105/64
[2023-06-23] MEDS: TOPROL XL PO (22:02)
[2023-06-23] MEDS: MELATONIN 5 MG PO (22:02)
[2023-06-23] MEDS: LEXAPRO 5 MG PO (22:02)
[2023-06-23] MEDS: PACERONE 100 MG PO (22:03)
--- NOTE | 2023-06-23 23:25 | PTCARENOTE ---
Pt had a 17 beat run of VT at 2323. Converts back to A-paced. Pt sleeping, asymptomatic. LICENSING COORDINATOR Ryan notified. BMP and Mg ordered for AM.
[2023-06-24] VITALS (7 sets, daily range): BP systolic 98–128; BP diastolic 49–69; PULSE 64; BMI 18.2
[2023-06-24] MEDS: PROSCAR 5 MG PO (08:44)
[2023-06-24] MEDS: ELIQUIS 2.5 MG PO ×2 (08:44→20:33)
[2023-06-24] MEDS: PEPCID 20 MG PO (08:44)
[2023-06-24 09:00] LABS: Blood Urea Nitrogen 43 mg/dl (9-20); Calcium 8.7 mg/dl (8.4-10.2); Carbon Dioxide 30 mmol/L (22-30); Chloride 99 mmol/L (98-107); Estimated Creatinine Clearance 43 ml/min; Glucose 95 mg/dl (70-99); Magnesium 2.2 mg/dl (1.6-2.3); Potassium 3.9 mmol/L (3.5-5.1); Sodium 138 mmol/L (135-145); eGFR > 60.00
[2023-06-24] MEDS: DEMADEX 20 MG PO (09:14)
--- NOTE | 2023-06-24 11:17 | CM ---
Chart reviewed and will await updated physical therapy evaluation today, plan is to home with spouse and [facility], daughter also updated with patient's permission.
Plan; Home with spouse and [facility].
--- NOTE | 2023-06-24 12:58 | VNURNOTE ---
Home Health Liaison spoke with patient's Lauren by phone at 1245 to discuss [facility] nurse/therapy, visits, schedule and homebound status. Lauren is agreeable and understands that visits at home will be 2-3 x per week to assess and teach medical
management. Patient was sleeping at time of visit.
Lauren is aware that [facility] will contact them for start of care in 1-2 days after discharge from .
[facility] referral completed in [facility].
--- NOTE | 2023-06-24 14:57 | PN.CDI ---
CDI
- -
CDI:
Physician Documentation Request
Admit Date: 06/19/23 18:59
Dear Doctor Prieto,
Patient admitted with pneumonia.
06/22 PN,'....right lower lobe pneumonia....History of possible silent aspiration video swallow with delay of contrast in the distal esophagus patient declined further evaluation in December 2022.....IV Zosyn....GERD-Continue Pepcid 20 mg twice
daily.'
CXR 06/21-Worsening right lower lobe pneumonia
Based on the above, please provide in your note the suspected or likely type of pneumonia you are treating:
Aspiration pneumonia
Pneumonia only
Other
Use of terms such as suspected, likely, concern for, or probable (associated with a specific diagnosis that is being evaluated, monitored, or treated as if it exists) are acceptable and can be coded in the inpatient setting, when documented at the
time of discharge.
Thank you,
Erma ROY,RN,CCDS
CDI Specialist
Available via [facility] text
Please use your independent medical judgment in providing your response.
--- NOTE | 2023-06-24 16:39 | W.PN.HOSP.TC ---
Today's Communication/Plan
-
recheck CXR
Assessment / Plan
Assessment / Plan
#Weakness secondary to right lower lobe pneumonia, small bilateral pleural effusions
abx to complete tomorrow
#History of possible silent aspiration video swallow with delay of contrast in the distal esophagus patient declined further evaluation in December 2022
# History of recurrent right pleural effusion requiring thoracentesis in past
input of pulm appreciated, does not believe enough fluid to tap
COVID/flu negative
-Speech swallow eval - not showing signs of aspiration
Pneumonia is probably aspiration PNA based on recurrence in same area as prior
-Sputum culture - over contamination with oropharyngeal gamaliel
Nasal swab +MRSA
-Incentive spirometry
- IV Zosyn
-Follow CBC, BMP
WBC 11.3-->7.5
CXR 06/21: Worsening right lower lobe pneumonia with small right pleural effusion
New small left pleural effusion
Moderate cardiomegaly without associated pulmonary edema
#BETI secondary to dehydration
Creat 1.5-->1.4-->1.4-->1.2-->1.0 (was 0.9 12/2022)
-Follow BMP
timing of resumption of diuretic, as per Cardio
#Hyperkalemia likely secondary to dehydration
K5.6-->4.6-->4.2-->4.1
Single dose Lokelma 10 g p.o. given
resolved
#Ischemic cardiomyopathy/severe 10-15% December 2022
I/O, daily weights
-Continue metoprolol
-Hold torsemide due to BETI/dehydration
-Consult [facility]ology - input appreciated
TTE 04/30/2022:�EF 10-15%, severe global hypokinesis with only inferior base and mid septum bora, stage III diastolic dysfunction, dilated right ventricle, moderate to severe mitral regurg, mild TR pulm arterial pressure 65 to 70 mmHg
#Cardiac arrest times 14 October 2019-status post stent LAD 09/2019
#Required trach and PEG tube both removed 2019
#Defibrillator/pacemaker 05/22/2020
#CAD
Continue aspirin, atorvastatin
#Paroxysmal A-fib
-Continue Eliquis 2.5 mg twice daily, amiodarone, metoprolol
#GERD
-Continue Pepcid 20 mg twice daily
#Anxiety/depression
-Continue Lexapro 5 mg at bedtime
Other PMH
BPH-continue finasteride 5 mg daily
Renal calculi
DVT prophylaxis
Continue Eliquis
reviewed clinical course with pt and at bedside 06/22
Cardio and Pulm have signed off, Demadex resumed, Abx completed 06/22
Discussed going home, pt concerned that he still feels weak, will plan on dc tomorrow
DNR per patient with Lauren at bedside
Anticipated Discharge: Within 24 hours
Subjective/Interval History
-
Date of Service: June 24, 2023
Remains weak, but definitely feeling better than on admission
Objective Data
-
Labs:
Laboratory Results
06/24/23
07:42
Sodium 138
Potassium 3.9
Chloride 99
Carbon Dioxide 30
BUN 43 H
Creatinine 1.0
Glucose 95
Calcium 8.7
Vital Signs:
Vital Signs
Temp Pulse Resp BP Pulse Ox
97.9 F 61 20 128/69 99
06/24/23 15:28 06/24/23 15:28 06/24/23 15:28 06/24/23 15:28 06/24/23 15:28
I&O
06/23/23 06/24/23 06/25/23
06:59 06:59 06:59
Intake Total 970 / 970 1560 / 1560
Output Total 525 / 525 625 / 625
Balance 445 / 445 935 / 935
Review of Systems
-
History Source: Patient
Constitutional: Reports No Symptoms
Respiratory: Reports Cough and Trouble Breathing (better)
Cardiac: Reports No Symptoms
Abdomen/GI: Reports No Symptoms
Genitourinary: Reports Hesitancy (with normal voiding)
Musculoskeletal: Reports No Symptoms
Skin: Reports No Symptoms
Neuro: Reports No Symptoms
Physical Exam
-
General: No Apparent Distress, Comfortable and Cachectic
HEENT: Normocephalic
Respiratory: Non Labored Respirations and Decreased Breath Sounds (in right lower lobe, improved)
Cardiac: Regular Rhythm and S1/S2
GI: Soft, Nontender, Nondistended and Flat
Genito-urinary: Clear Urine
Musculoskeletal: No Clubbing
Skin: Warm and Dry
Neuro: Awake, Alert, Oriented, Nonfocal/Grossly Intact and Other (voice is stronger)
Psych: Calm
[2023-06-24] MEDS: ASPIR LOW (ENTERIC COATED) 81 MG PO (20:33)
[2023-06-24] MEDS: MELATONIN 5 MG PO (21:10)
[2023-06-24] MEDS: LEXAPRO 5 MG PO (21:11)
[2023-06-24] MEDS: TOPROL XL 12.5 MG PO (21:12)
[2023-06-24] MEDS: PACERONE 100 MG PO (21:20)
[2023-06-25 03:56] VITALS: BP 99/57
[2023-06-25 06:00] VITALS: BMI 18.1
[2023-06-25 07:45] VITALS: BP 104/55
[2023-06-25] MEDS: PEPCID 20 MG PO (09:25)
[2023-06-25 09:26] VITALS: BP 102/49
[2023-06-25] MEDS: PROSCAR PO (09:26)
[2023-06-25] MEDS: ELIQUIS 2.5 MG PO (09:26)
[2023-06-25 11:20] VITALS: BP 96/53
[2023-06-25] MEDS: DEMADEX PO (12:07)
--- NOTE | 2023-06-25 12:23 | CM ---
Chart reviewed and plan is to home with spouse and [facility].
Plan; Home with spouse and [facility].
--- NOTE | 2023-06-25 12:38 | W.PN.HOSP.TC ---
Today's Communication/Plan
-
dc to home
Assessment / Plan
Assessment / Plan
#Weakness secondary to right lower lobe pneumonia, small bilateral pleural effusions
abx to completed
#History of possible silent aspiration video swallow with delay of contrast in the distal esophagus patient declined further evaluation in December 2022
# History of recurrent right pleural effusion requiring thoracentesis in past
input of pulm appreciated, does not believe enough fluid to tap
COVID/flu negative
-Speech swallow eval - not showing signs of aspiration
Pneumonia is probably aspiration PNA based on recurrence in same area as prior
-Sputum culture - over contamination with oropharyngeal gamaliel
Nasal swab +MRSA
-Incentive spirometry
- IV Zosyn
-Follow CBC, BMP
WBC 11.3-->7.5-->6.4
CXR 06/23:Right basilar airspace opacity remains suspicious for pneumonia. Small right and trace left pleural effusions. Stable radiographic appearance compared to the exam from 06/22/2023.
#BTEI secondary to dehydration
Creat 1.5-->1.4-->1.4-->1.2-->1.0 (was 0.9 12/2022)
-Follow BMP
back on Demadex
#Hyperkalemia likely secondary to dehydration
K5.6-->4.6-->4.2-->4.1
Single dose Lokelma 10 g p.o. given
resolved
#Ischemic cardiomyopathy/severe 10-15% December 2022
I/O, daily weights
-Continue metoprolol
-Hold torsemide due to BETI/dehydration
-Consult [facility]ology - input appreciated
TTE 04/30/2022:�EF 10-15%, severe global hypokinesis with only inferior base and mid septum bora, stage III diastolic dysfunction, dilated right ventricle, moderate to severe mitral regurg, mild TR pulm arterial pressure 65 to 70 mmHg
#Cardiac arrest times 14 October 2019-status post stent LAD 09/2019
#Required trach and PEG tube both removed 2019
#Defibrillator/pacemaker 05/22/2020
#CAD
Continue aspirin, atorvastatin
#Paroxysmal A-fib
-Continue Eliquis 2.5 mg twice daily, amiodarone, metoprolol
#GERD
-Continue Pepcid 20 mg twice daily
#Anxiety/depression
-Continue Lexapro 5 mg at bedtime
Other PMH
BPH-continue finasteride 5 mg daily
Renal calculi
DVT prophylaxis
Continue Eliquis
reviewed clinical course with pt and at bedside 06/24
Cardio and Pulm have signed off, Demadex resumed, Abx completed 06/22
dc now
DNR per patient with Lauren at bedside
More than 30 minutes spent in discharge including
Final examination of the patient
Summarizing hospital stay
Instructions for continuing care to all relevant caregivers
Preparation of discharge records, prescriptions, and referral forms
Total time spent (in minutes): 45
Anticipated Discharge: Today
Subjective/Interval History
-
Date of Service: June 25, 2023
Feels well enough to go home and would like him to go home
Objective Data
-
Vital Signs:
Vital Signs
Temp Pulse Resp BP Pulse Ox
97.5 F 61 16 96/53 98
06/25/23 11:20 06/25/23 11:20 06/25/23 11:20 06/25/23 11:20 06/25/23 11:20
I&O
06/24/23 06/25/23 06/26/23
06:59 06:59 06:59
Intake Total 1560 / 1560 360 / 360
Output Total 625 / 625 1675 / 1675
Balance 935 / 935 -1315 / -1315
Review of Systems
-
History Source: Patient
Constitutional: Reports No Symptoms
Respiratory: Reports Cough (better) and Trouble Breathing (better, he believes he is back to his baseline self)
Cardiac: Reports No Symptoms
Abdomen/GI: Reports No Symptoms
Genitourinary: Reports Hesitancy (with normal voiding)
Musculoskeletal: Reports No Symptoms
Skin: Reports No Symptoms
Neuro: Reports No Symptoms
Physical Exam
-
General: No Apparent Distress, Comfortable and Cachectic
HEENT: Normocephalic
Respiratory: Non Labored Respirations and Decreased Breath Sounds (in right lower lobe, improved); Negative Clear to Auscultation (coarse BS)
Cardiac: Regular Rhythm and S1/S2
GI: Soft, Nontender, Nondistended and Flat
Genito-urinary: Clear Urine
Musculoskeletal: No Clubbing
Skin: Warm and Dry
Neuro: Awake, Alert, Oriented, Nonfocal/Grossly Intact and Other (voice is stronger)
Psych: Calm
--- NOTE | 2023-06-25 13:13 | W.DS.TRANS ---
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
-
Discharge Instructions:
Sleep Apnea Risk Intermediate
Discharge Diagnosis/Procedures Pneumonia
Diet Low Sodium
Activity No strenuous activity
Driving Restrictions No driving
Bathing Restrictions None
Blood Work CBC, CMP in 1 week
Other Services VN
Instructions:
Stand-Alone Forms:
Changes to Home Medications: No
Discharge Medications:
DC Medications w/original date entered in [facility]
metoprolol succinate 25 mg tablet,extended release 24 hr 12.5 mg PO HS Blood Pressure 05/22/20
amiodarone 100 mg tablet 100 mg PO HS Arrhythmia 11/04/22
apixaban 2.5 mg tablet (Eliquis) 2.5 mg PO BID Blood Clot Prevention/Tx 11/04/22
aspirin 81 mg tablet,delayed release 81 mg PO HS Blood Clot Prevention/Tx 11/04/22
famotidine 20 mg tablet 20 mg PO BID Gastrointestinal Issue 11/04/22
finasteride 5 mg tablet 5 mg PO DAILY Urinary Issue 01/02/23
escitalopram oxalate 10 mg tablet 5 mg PO HS 06/19/23
torsemide 20 mg tablet 20 mg PO DAILY 06/19/23
Home Medication Changes
Pending Results: No
== END 2023-06-25 14:10 | disposition home health service (06) | DRG 177 ==
LOC: 4 WEST ACU 18:59
PROVIDERS: Clinical Nurse Specialist Family Health; Emergency Medicine; Nurse Practitioner Gerontology; Physician Assistant; ADMITTING PHYSICIAN Internal Medicine; CONSULT PHYSICIAN Internal Medicine; CONSULT PHYSICIAN Internal Medicine Cardiovascular Disease; EMERGENCY PHYSICIAN Student in an Organized Health Care Education/Training Program; FAMILY PHYSICIAN Family Medicine
DX: J69.0 Pneumonitis due to inhalation of food and vomit (principal); I50.23 Acute on chronic systolic (congestive) heart failure; N17.9 Acute kidney failure, unspecified; R64 Cachexia; I25.5 Ischemic cardiomyopathy; E87.5 Hyperkalemia; I25.10 Atherosclerotic heart disease of native coronary artery without angina pectoris; I48.0 Paroxysmal atrial fibrillation; K21.9 Gastro-esophageal reflux disease without esophagitis; F32.A Depression, unspecified; F41.9 Anxiety disorder, unspecified; I11.0 Hypertensive heart disease with heart failure; Z68.1 Body mass index [BMI] 19.9 or less, adult; Z79.01 Long term (current) use of anticoagulants
CPT/HCPCS: 71046; 80048; 80053; 80202; 81003; 81015; 83690; 83735; 83880; 84145; 84484; 85025; 87040; 87449; 87502; 87641; 87811; 93005; 96365; 97116; 97162; 97166; 99285

== ENCOUNTER 2023-07-08 02:20 | Observation (INO) | payer MEDICARE, OTHER, SELFPAY ==
[2023-07-07 18:44] VITALS: BP 99/64
[2023-07-07 19:10] LABS: % Basophils 0.7 % (0-2); % Eosinophils 0.4 % (0-6); % Immature Granulocytes 0.4 % (0-0.5); % Lymphocytes 23.6 % (20.5-51.1); % Monocytes 10.9 % (1.7-9.3); Absolute Basophils 0.1 10^3/uL (0-0.2); Absolute Lymphocytes 1.7 10^3/uL (1.2-3.4); Absolute Monocytes 0.8 10^3/uL (0.1-0.6); Absolute Neutrophils 4.5 10^3/uL (1.4-6.5); Hematocrit 48.2 % (39.0-52.0); Hemoglobin 17.1 g/dL (13.0-18.0); Mean Corp Hgb Conc. 35.5 g/dL (33.0-37.0); Mean Corpuscular Hgb 33.3 pg (27.0-31.0); Mean Corpuscular Volume 93.8 fL (80.0-94.0); Mean Platelet Volume 12.5 fL (7.4-10.4); Nucleated Red Blood Cells % 0 % (-); Platelet Count 129 10^3/uL (130-400); Red Blood Cell Count 5.14 10^6/uL (4.70-6.10); Red Cell Dist. Width 15.7 % (11.5-14.5)
[2023-07-07 19:27] LABS: ALT (SGPT) 23 U/L (0-50); AST (SGOT) 38 U/L (17-59); Albumin 3.6 g/dl (3.5-5.0); Alkaline Phosphatase 133 U/L (38-126); Blood Urea Nitrogen 50 mg/dl (9-20); Calcium 9.3 mg/dl (8.4-10.2); Carbon Dioxide 21 mmol/L (22-30); Chloride 102 mmol/L (98-107); Glucose 114 mg/dl (70-99); Potassium 4.8 mmol/L (3.5-5.1); Sodium 132 mmol/L (135-145); Total Bilirubin 3.5 mg/dl (0.2-1.3); Total Protein 6.1 g/dl (6.3-8.2); eGFR > 60.00
[2023-07-07 19:53] VITALS: BMI 18.5
[2023-07-07 19:59] VITALS: BP 103/68
[2023-07-07 20:02] VITALS: BP 103/68
--- NOTE | 2023-07-07 20:13 | ED.GENMED ---
History of Present Illness
General
Chief Complaint: Breathing Problem
Source: patient and family
Exam Limitations: none
Time Seen by Provider: 07/07/23 20:04
Travel History
Have you had any contact with someone who has COVID-19?: No
Do you have any symptoms of coronavirus? Fever > 100 degrees, chills, cough, shortness of breath, sore throat, loss of taste or smell, muscle aches, or headache?: No
History of Present Illness
History of Present Illness:
82-year-old male complaining of some increased shortness of breath the last few days. Feels drained. Questionable medication compliance issues. No chest pain no significant change in chronic cough no fever no other complaints. Patient recently
in the hospital for pneumonia.
Past History
Past History
ED Past Medical History: Arrthythmia (Atrial fib), CAD, CHF, HTN, Hypercholesterolemia, [place], Psychiatric (Depression), Other (kidney stones, Cardiac arrest, DVT, Prior Peg, UTI) and Other (DVT)
ED Past Surgical History: Cardiac (Defib) and Other (Prior Trach, Hernia repair X 2. Stents x 2)
Social History
Tobacco: Non-smoker
Alcohol: None
Drug: None
Personal:
Living: with family
Employment: Retired
Family History
Family History: Other
Review of Systems
Review of Systems
All Other Systems: Not applicable
Constitutional: Denies fever
Respiratory: Reports cough; Denies hemoptysis
Cardiac: Denies chest pain or syncope
ABD/GI: Reports no symptoms
Phy Exam
Physical Exam
Physical Exam:
GENERAL: Alert and oriented in no apparent distress. Generally weak appearing. Elderly and frail
EYE: Orbits normal.
NECK: Supple, no thyroid palpable.
ENT: Pharynx without erythema
CARDIAC: Regular rate and rhythm without any obvious murmurs. Pacemaker left upper chest wall
LUNGS: Decreased breath sounds diffusely but slightly asymmetrically worse on the right base with some mild rhonchi at the right base. Slightly distant generally. No distress
ABDOMEN: Soft, without focal tenderness or distention
NEUROLOGICAL: Alert and oriented , grossly non-focal
SKIN: Warm and dry, no rash or lesion, no discoloration, skin intact.
MUSCULOSKELETAL: No edema,no deformity.Good color
PSYCH: Normal and appropriate interaction.
Scores
Heart Failure Risk
Heart Failure Risk Score: Yes
History of Stroke or TIA: No
History of intubation for respiratory distress: No
Heart rate on ED arrival >/= 110: No
SaO2 <90% on arrival on room air: No
HR >/=110 during 3min walk test (or too ill to perform test): Yes
ECG has acute ischemic changes: No
Urea >/=12mmol/L (BUN 33.6mg/dL): Yes
Serum CO2>/=35mmol/L: No
Troponin I or T elevated to [place] Level (0.4mg/dL): No
NT-proBNP >/=5,000ng/L (5,000pg/ml): Yes
HF Risk Score: 4
Admission Status: HIGH RISK 26.1% Consider SNF treatment or admission to hospital
Course
Orders/Labs/Results
Orders:
Orders
07/07/23 18:49
Electrocardiogram (*1) Urgent
Reason for Study: Shortness of Breath
EKG- Treatment ONCE
07/07/23 18:58
Complete Blood Count/With Diff Urgent
Comprehensive Metabolic Panel Urgent
07/07/23 20:12
CXR2 [CR Chest - 2 Views ] Urgent
Comment:
Reason For Exam: Short of breath
07/07/23 20:44
Pro-BNP [NT-proBNP] Urgent
Troponin I Urgent
07/07/23 22:16
O2 Therapy [RESP] Stat
Titrate/Wean O2 to maintain O2 sat greater than (%): 92
07/07/23 22:32
D-Dimer Urgent
07/07/23 23:27
Furosemide [Lasix] 40 mg IV NOW STA
07/07/23 23:41
COVID-19 Antigen Urgent
Source: Nasal Swab
Procalcitonin Urgent
PCT Algorithmm Indication: Respiratory
Influenza A+B Rapid Molecular Urgent
JONATHON Source: Nasal Swab
Specimen Description:
Abnormal Lab Results
07/07/23 07/07/23
18:58 22:32
MCH 33.3 H pg
(27.0-31.0)
RDW 15.7 H %
(11.5-14.5)
Plt Count 129 L 10^3/uL
(130-400)
MPV 12.5 H fL
(7.4-10.4)
Absolute Monos (auto) 0.8 H 10^3/uL
(0.1-0.6)
Monocytes % 10.9 H %
(1.7-9.3)
D-Dimer 1.29 H ug/mlFEU
(0.00-0.50)
Sodium 132 L mmol/L
(135-145)
Carbon Dioxide 21 L mmol/L
(22-30)
BUN 50 H mg/dl
(9-20)
Glucose 114 H mg/dl
(70-99)
Total Bilirubin 3.5 H mg/dl
(0.2-1.3)
Alkaline Phosphatase 133 H U/L
(38-126)
Total Protein 6.1 L g/dl
(6.3-8.2)
07/07/23 18:58
07/07/23 18:58
Vital Signs
Initial and Last Documented VS:
Initial Vital Signs
Temp Pulse Resp BP Pulse Ox
97.8 F 82 16 99/64 98
07/07/23 18:44 07/07/23 18:44 07/07/23 18:44 07/07/23 18:44 07/07/23 18:44
Last Documented Vital Signs
Temp Pulse Resp BP Pulse Ox
98.1 F 81 20 112/82 98
07/07/23 19:59 07/07/23 22:37 07/07/23 22:37 07/07/23 22:37 07/07/23 22:37
MDM/Problems Addressed
Differential Diagnosis Includes:
Patient with some increasing shortness of breath last 2 days. Clinically stable and nontoxic. Considerations would include progression of pneumonia, heart failure, doubt pulmonary emboli. Workup in progress.
*Pulse Oximetry
Patient hypoxic: no
*EKG
Interpreted by ED Provider?: Yes
Interpretation: abnormal
Comparison EKG: no changes
Heart Rate: 84
Rate: normal
Rhythm: sinus
[place]: left axis deviation
Interval: normal interval
QRS Pattern: left vent hypertrophy
Ischemia: non-specific ST changes
*Critical Care Note
Total Time (30-74mins, 75-104mins- exclusive of procedures): Not Applicable
Data Reviewed
Review of Other/Old Records Reveals: Labs, Records, Radiology Studies and Discharge Summary
Update Note
Update Note:
Patient with episodes of hypoxia transitory in nature at times pulse ox will go down to 88%. At times more tachypneic. proBNP greater than 27,000 which appears to be baseline. Chest x-ray appears baseline. D-dimer was done however on Eliquis.
Unsure of his true allergy with CT scan. Will add diuretic admit for further care
Pacemaker interrogation within normal limits
ED Attending Note
-
Portions of this chart may have been created with voice recognition software.� Occasional wrong word or��sound alike� substitutions may have occurred due to the inherent limitations of voice recognition software.
Discharge Plan
Departure
Patient Disposition: Admit
Date of Disposition: 07/07/23
Time of Disposition: 23:30
Presentation/result/management discussed w/ accepting MD/DO: Hospitalist
Discharge Problem:
Dyspnea/fatigue, Right basilar infiltrate/effusion, CHF, Cardiomyopathy
Prescriptions:
No Action
metoprolol succinate 25 MG tablet extended release 24 hr
12.5 mg PO HS
Patient Comments:
06/19/2023, per edwin, pt. does not take this medication regularly.
aspirin 81 mg Tablet,Delayed Release (Dr/Ec)
81 mg PO HS
Patient Comments:
06/19/2023, per edwin, pt. does not take this medication regularly.
amiodarone 100 mg Tablet
100 mg PO HS
Patient Comments:
06/19/2023, per edwin, pt. does not take this medication regularly. Last filled 04/10/2023 for 30-day supply.
Eliquis 2.5 mg Tablet
2.5 mg PO BID
Patient Comments:
06/19/2023, per edwin, pt. does not take this medication regularly.
famotidine 20 MG tablet
20 mg PO BID
Patient Comments:
06/19/2023, per edwin, pt. does not take this medication regularly.
finasteride 5 mg Tablet
5 mg PO DAILY
Patient Comments:
06/19/2023, per edwin, pt. does not take this medication regularly.
escitalopram oxalate 10 mg Tablet
5 mg PO HS
Patient Comments:
06/19/2023, per edwin, pt. does not take this medication regularly.
torsemide 20 mg tablet
20 mg PO DAILY
Patient Comments:
06/19/2023, per edwin, pt. does not take this medication regularly.
Referrals:
UNKNOWN - PT NOT,INTERVIEWE [Family Provider] -
Interventions
Interventions:
*Risk Screen - Suicide Last Done: 07/07/23 18:44
*General Assessment Last Done: 07/07/23 18:44
*Neglect/Abuse Screening Last Done: 07/07/23 18:44
ED- Fall Risk Assessment Last Done: 07/07/23 20:07
ED- Cardiac Assessment Last Done: 07/07/23 20:07
ED- Pulmonary Assessment Last Done: 07/07/23 20:07
[2023-07-07 21:17] LABS: NT-proBNP > 27000 pg/ml; Troponin I 0.028 ng/ml
[2023-07-07 22:00] VITALS: BP 112/82
[2023-07-07 22:37] VITALS: BP 112/82
[2023-07-07 23:00] VITALS: BP 95/62
[2023-07-07 23:03] LABS: D-Dimer 1.29 ug/mlFEU (0.00-0.50)
[2023-07-08] VITALS (23 sets, daily range): BP systolic 79–117; BP diastolic 28–76; PULSE 80–82; O2SAT 94–100; BMI 18.2
[2023-07-08] MEDS: LASIX 40 MG IV (00:36)
[2023-07-08 00:59] LABS: COVID-19 Antigen Negative (Negative)
[2023-07-08 01:27] LABS: Procalcitonin 0.23 ng/ml (0.0-0.25)
--- NOTE | 2023-07-08 02:00 | HPS.HSE ---
Family Physician
-
Family Physician: INTERVIEWE UNKNOWN - PT NOT
Chief Complaint
-
Anxiety
History of Present Illness
Patient is a n 82y M with PMH significant for ASCVD, CHF and PA-Fib who presents to ED complaining of anxiety. Patient states that for the past 2 days he has had intermittent restlessness and anxious feelings. He notes that he has felt slightly
more SOB - though he admits that his breathing is 'always heavy'. He has had nothing to eat for the past 2 days due to decreased appetite. He denies any fevers / chills, chest pain, cough, abdominal pain, N/V/D or urinary complaints.
Patient states that today he began to feel very anxious and he could not get his breath. He presented to the ED for further evaluation.
At the time of my examination, the patient is resting comfortably and has no complaints.
In the ED, his oxygen saturations periodically decrease into the 80s before increasing again into the 90s. He does not have O2 at home.
Medical History
Past Medical History
Past Medical History: Reports Other
Additional Past Medical History:
severe ischemic cardiomyopathy with EF 15%
cardiac arrest 2019 status post LAD stent required trach and PEG tube with removal 2019,
pacemaker/defibrillator
chronic systolic CHF
paroxysmal A-fib
recurrent right pleural effusion status post thoracentesis with transudative fluid
moderate to severe MR
History of possible silent aspiration video swallow with delay of contrast in the distal esophagus patient declined further evaluation in December 2022
Past Surgical History: Reports Other
Additional Past Surgical History:
Bladder stone removal
ICD/permanent pacemaker 05/22/2020
Cardiac cath with LAD stent 10/02/2019
Hernia repair x 2
Tracheostomy with removal 2019 postcardiac arrest
PEG tube with removal 2019 postcardiac arrest
Social History
Tobacco: Non-smoker
Alcohol: None
Drug: None
Personal:
Living: With Family (Lauren)
Employment: Retired
Family History
Family History: Other (Mother age 95 post valve replacement, father CHF)
Allergies / Home Medications
Allergies reflects when Allergies were last updated in [facility].
Home Medications with original date entered in [facility]
Allergy/Medication List:
Allergies
Allergy/AdvReac Type Severity Reaction Status Date / Time
acetaminophen Allergy Rash Verified 07/07/23 18:42
[From Unisom Dual Relief]
cefepime Allergy Rash Verified 07/07/23 18:42
cefuroxime Allergy Rash Verified 07/07/23 18:42
cortisone Allergy Rash Verified 07/07/23 18:42
diphenhydramine Allergy Rash Verified 07/07/23 18:42
[From Unisom Dual Relief]
hydrocortisone Allergy Rash Verified 07/07/23 18:42
Iodinated Contrast Media Allergy Rash Verified 07/07/23 18:42
Sulfa (Sulfonamide Allergy Rash Verified 07/07/23 18:42
Antibiotics)
Home Medications
metoprolol succinate 25 mg tablet,extended release 24 hr 12.5 mg PO HS Blood Pressure 05/22/20
amiodarone 100 mg tablet 100 mg PO HS Arrhythmia 11/04/22
apixaban 2.5 mg tablet (Eliquis) 2.5 mg PO BID Blood Clot Prevention/Tx 11/04/22
aspirin 81 mg tablet,delayed release 81 mg PO HS Blood Clot Prevention/Tx 11/04/22
famotidine 20 mg tablet 20 mg PO BID Gastrointestinal Issue 11/04/22
finasteride 5 mg tablet 5 mg PO DAILY Urinary Issue 01/02/23
escitalopram oxalate 10 mg tablet 5 mg PO HS 06/19/23
torsemide 20 mg tablet 20 mg PO DAILY 06/19/23
Review of Systems
-
History Source: Patient
A 12 point ROS was completed and negative except as noted: Yes
Constitutional: Reports Fatigue; Denies Fever or Chills
EENT: Denies Sore Throat or Runny Nose
Respiratory: Reports Trouble Breathing; Denies Cough or Hemoptysis
Cardiac: Denies Chest Pain or Palpitations
Abdomen/GI: Denies Abdominal Pain, Nausea, Vomiting or Diarrhea
: Denies Dysuria, Frequency or Flank Pain
Musculoskeletal: Denies Joint Pain or Edema
Neurological: Denies Dizzy or Headache
Psych: Reports Anxiety
Physical Exam
Vital Signs
Vital Signs
Temp Pulse Resp BP Pulse Ox
98.1 F 94 20 117/71 98
07/07/23 19:59 07/08/23 01:29 07/08/23 01:29 07/08/23 01:29 07/08/23 01:29
Physical Exam
General: Other (82y M in no acute distress.)
HEENT: Moist mucous membranes and PERRLA
Respiratory: Other (Decreased BS at R base - otherwise clear.)
Cardiac: S1/S2, Regular Rhythm and Murmur (II/ JIGNESH)
GI: Soft, Non Tender, Non Distended and Normal Bowel Sounds
Musculoskeletal: No Clubbing, No Cyanosis and No Edema
Neuro: AO x 3
Laboratory Results
-
07/07/23 18:58
07/07/23 18:58
Laboratory Results
Total Bilirubin 3.5 mg/dl (0.2-1.3) H 07/07/23 18:58
AST 38 U/L (17-59) 07/07/23 18:58
ALT 23 U/L (0-50) 07/07/23 18:58
Alkaline Phosphatase 133 U/L (38-126) H 07/07/23 18:58
Troponin I 0.028 ng/ml 07/07/23 20:44
Impression/Plan
-
A/P: Patient is an 82y M with PMH significant for ASCVD, CHF and PA-Fib who presents to ED complaining of increased anxiety and SOB.
Panic Attack / Anxiety
Chronic Hypoxemic Respiratory Insufficiency
- Observe overnight for further evaluation and treatment.
- ? if increased anxiety is secondary to hypoxemia or vice versa.
- There is no evidence of any acute process such as pneumonia, hypervolemia, etc.
- Continue Lexapro.
- Morphine for now for pain or increased dyspnea.
- Consider addition of other anxiolytic for symptom control.
- Continue Home O2 which should also help to alleviate symptoms and intermittent hypoxemia.
Chronic HFrEF
- Stable. Weight has been stable and no evidence on exam of acute overload despite chronically maximized BNP.
- Continue current diuretic regimen.
- Follow I/Os, daily weights, etc.
- LVEF = 10-15% on most recent Echo.
- Continue current CV med regimen.
ASCVD
- Stable. No complaints of chest pain.
- Continue current CV med regimen.
Paroxysmal Atrial Fibrillation
- Stable. Continue Amio, metoprolol and Eliquis.
DVT Prophylaxis: On Eliquis
Code Status: DNR
[2023-07-08 04:57] LABS: Hematocrit 49.5 % (39.0-52.0); Hemoglobin 17.2 g/dL (13.0-18.0); Mean Corp Hgb Conc. 34.7 g/dL (33.0-37.0); Mean Corpuscular Hgb 33.1 pg (27.0-31.0); Mean Corpuscular Volume 95.2 fL (80.0-94.0); Mean Platelet Volume 12.5 fL (7.4-10.4); Platelet Count 132 10^3/uL (130-400); Red Cell Dist. Width 15.8 % (11.5-14.5)
[2023-07-08 05:34] LABS: Troponin I 0.035 ng/ml
[2023-07-08 05:51] LABS: Blood Urea Nitrogen 53 mg/dl (9-20); Calcium 9.5 mg/dl (8.4-10.2); Carbon Dioxide 25 mmol/L (22-30); Chloride 98 mmol/L (98-107); Estimated Creatinine Clearance 35 ml/min; Glucose 96 mg/dl (70-99); Potassium 4.7 mmol/L (3.5-5.1); Sodium 136 mmol/L (135-145); eGFR > 60.00
--- NOTE | 2023-07-08 06:11 | PTCARENOTE ---
Received patient from ED via stretcher into room 1755. Patient ambulated w/ stand by assist. Denies any dizziness. Tele monitor applied pt SR, sating 98% on 2L. Has an occasional PROFESSOR OF MATHEMATICS cough. Lungs decreased in bases. Denies any chest pain. Patient
aware of POC, call madera within reach.
[2023-07-08] MEDS: PEPCID 20 MG PO (09:08)
[2023-07-08] MEDS: PROSCAR 5 MG PO (09:08)
[2023-07-08] MEDS: ELIQUIS 2.5 MG PO ×2 (09:09→19:41)
--- NOTE | 2023-07-08 09:14 | PTCARENOTE ---
Received patient this morning resting in bed, now awake and being seen by pipe testing technician. Spoke with the patient's daughter Sanaz who is a employee, updated on plan of care.
[2023-07-08] MEDS: DEMADEX 20 MG PO (09:26)
[2023-07-08] MEDS: FLUSH (NSS) 1 FLUSH IV (09:28)
--- NOTE | 2023-07-08 09:29 | VNURNOTE ---
Patient is current with [facility] since 06/25 w/ SN/PT/OT, will monitor progress and plan at discharge. Patient is also current with Palliative Care.
[2023-07-08 10:20] LABS: Troponin I 0.033 ng/ml
--- NOTE | 2023-07-08 11:23 | CM ---
spoke to pt in room, he is prev indep, lives with his in a 2 story home with a first floor set up and 1 step to enter. he has a cane and a walker he uses. cm following for dc planning needs.
--- NOTE | 2023-07-08 11:53 | PTCARENOTE ---
Sitting oob in the chair, pulse ox on RA 100%. Ambulated to the day room, had to sit and rest in the lounge before he could walk further, however pulse ox > 94%. After resting ambulated approximately 50 feet, back to his room, pulse ox remained at
94%. Patient stated he felt fatigued and sob with walk.
--- NOTE | 2023-07-08 12:41 | W.PN.UPDATE ---
Update Note
Progress Note Update
Patient seen and examined. Overnight physician. Patient states of severe anxiety at home. States of feeling short of breath due to severe anxiety which has resolved. States breathing is back to baseline. Denies any shortness of breath. Denies
any lightheaded dizziness. Denies any chest pain. States of severely decreased appetite at home. States of drinking protein high caloric shakes in the past which he has stopped recently. Lives with spouse who cooks.
General: No acute distress, chronically ill-appearing
HEENT: Moist mucous membranes, extract muscle intact, neck is supple
Respiratory: Other (Decreased BS at R base - otherwise clear.)
Cardiac: S1/S2, Regular Rhythm and Murmur (II/ JIGNESH)
GI: Soft, Non Tender, Non Distended and Normal Bowel Sounds
Musculoskeletal: No Clubbing, No Cyanosis and No Edema
Neuro: AO x 3
A/P:� Patient is an 82y M with PMH significant for ASCVD, CHF and PA-Fib who presents to ED complaining of increased anxiety and SOB.
Panic Attack / Anxiety
�- ? if increased anxiety is secondary to hypoxemia or vice versa.
�- There is no evidence of any acute process such as pneumonia, hypervolemia, etc.
�- Continue Lexapro.
�- Morphine for now for pain or increased dyspnea.
�- Consider addition of other anxiolytic for symptom control.
�- HOME O2 eval and Nocturnal O2 eval study tonight
Chronic HFrEF s/p ICD
�- Stable.� Weight has been stable and no evidence on exam of acute overload despite chronically maximized BNP.
�- Continue current diuretic regimen.
�- Follow I/Os, daily weights, etc.
�- LVEF = 10-15% on most recent Echo.
�- Continue current CV med regimen.
CAD s/p stents
�- Stable.� No complaints of chest pain.
�- Continue current CV med regimen.
Paroxysmal Atrial Fibrillation
�- Stable.� Continue Amio, metoprolol and Eliquis.
Recent Pna
Hx of pleural effusion s/p thoraentesis
-CXR with Small-moderate right-sided pleural effusion with associated pneumonia versus atelectasis right lung base, not significantly changed compared with the prior study.
Cardiomegaly
-Check US chest
-IS ordered
Elevated hemoglobin-?secondary Polycythemia in setting of CHF/Diuretics
-Trend cbc for now.
-If worsening may need Heme input.
-already on aspirin/eliquis should help
Severe protein caloric malnutrition of chronic illness
-nutrition on board.
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
DVT Prophylaxis:� On Eliquis
Code Status:� DNR
--- NOTE | 2023-07-08 18:12 | PTCARENOTE ---
Appetite remains very poor, ate roughly 20% of breakfast and lunch, contemplating what to order for dinner with his . Given ensure clear supplement and seems interested in trying this.
[2023-07-08] MEDS: LEXAPRO 5 MG PO (20:46)
[2023-07-08] MEDS: PACERONE 100 MG PO (20:47)
[2023-07-08] MEDS: TOPROL XL 12.5 MG PO (20:47)
[2023-07-08] MEDS: ASPIR LOW (ENTERIC COATED) 81 MG PO (20:47)
--- NOTE | 2023-07-08 22:24 | PTCARENOTE ---
Assumed care at 1900. Patient anxious. Complaints of intermittent episodes of shortness of breath oxygen at 3 liters NC, POX 99-100%. Urinary frequency, PVR 24. Decreased breath sounds on the right base. Repositioned for comfort. SR on telemetry.
Call madera in reach
--- NOTE | 2023-07-08 22:46 | PTCARENOTE ---
Nocturnal POX on room air POX 99-100%
[2023-07-09] VITALS (16 sets, daily range): BP systolic 69–105; BP diastolic 53–74; BMI 18.2
[2023-07-09 04:45] LABS: Blood Urea Nitrogen 59 mg/dl (9-20); Calcium 9.3 mg/dl (8.4-10.2); Carbon Dioxide 21 mmol/L (22-30); Chloride 103 mmol/L (98-107); Estimated Creatinine Clearance 32 ml/min; Glucose 110 mg/dl (70-99); LDH 345 U/L (120-246); Sodium 132 mmol/L (135-145); Total Protein 5.7 g/dl (6.3-8.2); eGFR 55.19
--- NOTE | 2023-07-09 08:28 | PTCARENOTE ---
Received patient this morning lying in the position in bed. Sleepy but oriented, requesting to have his morning medications after 0900, breakfast ordered for the patient. Call madera within reach.
[2023-07-09] MEDS: DEMADEX PO (08:55)
[2023-07-09] MEDS: PROSCAR 5 MG PO (09:13)
[2023-07-09] MEDS: PEPCID 20 MG PO (09:13)
[2023-07-09] MEDS: FLUSH (NSS) 1 FLUSH IV (09:13)
[2023-07-09] MEDS: ELIQUIS 2.5 MG PO ×2 (09:13→19:36)
--- NOTE | 2023-07-09 10:24 | W.PN.HOSP.TC ---
Today's Communication/Plan
-
IRAD for thora
home o2 eval
will require atleast nocturnal O2 to be set up
Assessment / Plan
Assessment / Plan
General: No acute distress, chronically ill-appearing
HEENT: Moist mucous membranes, extract muscle intact, neck is supple
Respiratory: Other (Decreased BS at R base - otherwise clear.)
Cardiac: S1/S2, Regular Rhythm and Murmur (II/ JIGNESH)
GI: Soft, Non Tender, Non Distended and Normal Bowel Sounds
Musculoskeletal: No Clubbing, No Cyanosis and No Edema
Neuro: AO x 3
A/P:� Patient is an 82y M with PMH significant for ASCVD, CHF and PA-Fib who presents to ED complaining of increased anxiety and SOB.
Panic Attack / Anxiety
�- ? if increased anxiety is secondary to hypoxemia or vice versa.
�- There is no evidence of any acute process such as pneumonia, hypervolemia, etc.
�- Continue Lexapro.
�- Morphine for now for pain or increased dyspnea.
�- Consider addition of other anxiolytic for symptom control.
�- HOME O2 eval prior to dc.
- Pt did qualify for nocturnal oxygen. Will require 2L for nocturnal usage. O2 lowest of 74% on room air.
Chronic HFrEF s/p ICD
�- Stable.� Weight has been stable and no evidence on exam of acute overload despite chronically maximized BNP.
�- Continue current diuretic regimen.
�- Follow I/Os, daily weights, etc.
�- LVEF = 10-15% on most recent Echo.
�- Continue current CV med regimen. BUN elevated and with poor appetite. Holding diuretics for today.
CAD s/p stents
�- Stable.� No complaints of chest pain.
�- Continue current CV med regimen.
Paroxysmal Atrial Fibrillation
�- Stable.� Continue Amio, metoprolol and Eliquis.
Recent Pna
Hx of pleural effusion s/p thoracentesis
-CXR with Small-moderate right-sided pleural effusion with associated pneumonia versus atelectasis right lung base, not significantly changed compared with the prior study.
Cardiomegaly
-Ultrasound chest with effusions. IR consulted for thoracentesis.
-IS ordered
Elevated hemoglobin-?secondary Polycythemia in setting of CHF/Diuretics
-Trend cbc for now.
-If worsening may need Heme input.
-already on aspirin/eliquis should help
Severe protein caloric malnutrition of chronic illness
-nutrition on board.
senior care prognosis poor
DVT Prophylaxis:� On Eliquis
Code Status:� DNR
Anticipated Discharge: Within 24 hours
Subjective/Interval History
-
Date of Service: July 09, 2023
remains with poor appetite
states breathing has improved
Objective Data
-
Labs:
Laboratory Results
07/09/23
04:13
Sodium 132 L
Potassium 5.0
Chloride 103
Carbon Dioxide 21 L
BUN 59 H
Creatinine 1.3
Glucose 110 H
Calcium 9.3
Vital Signs:
Vital Signs
Temp Pulse Resp BP Pulse Ox
98 F 62 20 102/62 96
07/09/23 07:27 07/09/23 07:30 07/09/23 07:27 07/09/23 07:29 07/09/23 07:27
I&O
07/08/23 07/09/23 07/10/23
06:59 06:59 06:59
Intake Total 240 / 240
Output Total 200 / 200 350 / 350
Balance -200 / -200 -110 / -110
--- NOTE | 2023-07-09 10:32 | PTCARENOTE ---
The patient's and daughter are in visiting with the patient. IR calling for patient for thoracentesis, report given, patient notified.
[2023-07-09 11:55] LABS: Body Fluid pH 7.51
[2023-07-09 12:02] LABS: Body Fluid Mononuclear 60.3 %; Body Fluid Polymorphonuclear 39.7 %; Body Fluid WBC 252 /CUMM
[2023-07-09 12:07] LABS: Body Fluid Second Tech SS
[2023-07-09 12:12] LABS: Body Fluid Glucose 110 mg/dl; Body Fluid LDH < 90 U/L; Body Fluid Protein < 2.0 g/dl
--- NOTE | 2023-07-09 12:33 | PTCARENOTE ---
Patient returned from IR after right thoracentesis. Band aid dry and intact right lower back, assisted back to bed, VSS. and daughter at the bedside.
--- NOTE | 2023-07-09 13:44 | CM ---
"spoke with pt, and daughter in room. pt qualified for nocturnal O2. they were in agreement. referral faxed with qualifying documentation to [facility]. he is current with palliative care at ( [facility]) , family will discuss hospice with "Simran"Simone when they feel its time. "
--- NOTE | 2023-07-09 17:05 | PTCARENOTE ---
Patient ate one bite of an omelette this morning and would not eat lunch after thoracentesis, appetite remains poor. Doesn't seem to like ensure clear, offered and sitting at the bedside table. Sipping water and prefers apple juice, does not exceed
fluid restriction. Slept for several hours after thoracentesis, family in and out of room to visit. Had some stress incontinence and assisted standing at the bedside to change his underwear. and daughter bringing the patient back dinner,
patient notified and seemed interested.
[2023-07-09] MEDS: TOPROL XL 12.5 MG PO (22:47)
[2023-07-09] MEDS: ASPIR LOW (ENTERIC COATED) 81 MG PO (22:47)
[2023-07-09] MEDS: PACERONE 100 MG PO (22:48)
[2023-07-09] MEDS: LEXAPRO 5 MG PO (22:48)
[2023-07-09] MEDS: TYLENOL 650 MG PO (22:48)
[2023-07-10] VITALS (10 sets, daily range): BP systolic 88–122; BP diastolic 53–85; PULSE 70–81; O2SAT 99; BMI 17.7
--- NOTE | 2023-07-10 00:32 | PTCARENOTE ---
Tele monitor shows SR and occasional Apaced, and prolonged QT. Patient ZARATE, and requested for O2 to be applied at HS. Unable to obtain oral temp, rectal temp 94.6. Kannan CHAMPAGNE notified, and orders obtained for brooklyn hugger. Brooklyn hugger
applied, goal temp 97. Rectal checked 1hr post initial application, and rectal temp currently 97. [place] hugger removed, and warm blankets applied. Patient restless, and ringing call madera multiple times. Patient c/o discomfort near thoracentesis site.
Band-aid C/D/I, PRN Tylenol administered for discomfort--see MAR for details. Call madera in reach.
[2023-07-10] MEDS: PROSCAR 5 MG PO (09:12)
[2023-07-10] MEDS: PEPCID 20 MG PO (09:12)
[2023-07-10] MEDS: ELIQUIS 2.5 MG PO ×2 (09:12→20:05)
[2023-07-10 09:38] LABS: Blood Urea Nitrogen 66 mg/dl (9-20); Calcium 9.2 mg/dl (8.4-10.2); Carbon Dioxide 25 mmol/L (22-30); Chloride 100 mmol/L (98-107); Estimated Creatinine Clearance 27 ml/min; Glucose 99 mg/dl (70-99); Potassium 4.5 mmol/L (3.5-5.1); Sodium 133 mmol/L (135-145); eGFR 46.48
--- NOTE | 2023-07-10 11:03 | W.PN.HOSP.TC ---
Today's Communication/Plan
-
Switch to inpatient
Check urine studies
Appetite stimulant
Continue with therapy
Long-term prognosis guarded
Assessment / Plan
Assessment / Plan
General: No acute distress, chronically ill-appearing
HEENT: Moist mucous membranes, extract muscle intact, neck is supple
Respiratory: Other (Decreased BS at R base - otherwise clear.)
Cardiac: S1/S2, Regular Rhythm and Murmur (II/ JIGNESH)
GI: Soft, Non Tender, Non Distended and Normal Bowel Sounds
Musculoskeletal: No Clubbing, No Cyanosis and No Edema
Neuro: AO x 3
A/P:� Patient is an 82y M with PMH significant for ASCVD, CHF and PA-Fib who presents to ED complaining of increased anxiety and SOB.
Panic Attack / Anxiety
�- ? if increased anxiety is secondary to hypoxemia or vice versa.
�- There is no evidence of any acute process such as pneumonia, hypervolemia, etc.
�- Continue Lexapro.
�- Morphine for now for pain or increased dyspnea.
�- Consider addition of other anxiolytic for symptom control. Did not qualify for home o2 during daytime.
- Pt did qualify for nocturnal oxygen.
Chronic HFrEF s/p ICD
�- Stable.� Weight has been stable and no evidence on exam of acute overload despite chronically maximized BNP.
�- Follow I/Os, daily weights, etc.
�- LVEF = 10-15% on most recent Echo.
�- Continue current CV med regimen. BUN elevated and with poor appetite. Holding diuretics for today.
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
-Check urine studies
-bladder scan
-BUN trending up. poor appetite. may require IVF gentle 250cc.
CAD s/p stents
�- Stable.� No complaints of chest pain.
�- Continue current CV med regimen.
Paroxysmal Atrial Fibrillation
�- Stable.� Continue Amio, metoprolol and Eliquis.
Recent Pna
Hx of recurrent pleural effusion
-CXR with Small-moderate right-sided pleural effusion with associated pneumonia versus atelectasis right lung base, not significantly changed compared with the prior study.
Cardiomegaly
-Ultrasound chest with effusions. IR consulted for thoracentesis. Status post 1150 cc fluid removed transudative in nature on 07/08.
-IS ordered
Elevated hemoglobin-?secondary Polycythemia in setting of CHF/Diuretics
-Trend cbc for now.
-If worsening may need Heme input.
-already on aspirin/eliquis should help
Severe protein caloric malnutrition of chronic illness
-nutrition on board. Patient and daughter agree to start an appetite stimulant. Will start low-dose Remeron 7.5 mg nightly.
custodial prognosis poor
DVT Prophylaxis:� On Eliquis
Code Status:� DNR
Pt will require further monitoring due to elevaeted cr and on diuretics. Will switch to inpatient.
updated daughter over the phone in details. Discussed about current hospitalization including poor appetite, pleural effusion recurrent, elevated creatinine. Patient is currently on palliative care as outpatient. Hospice was broached but no
current plan to transition. Did explain to patient and daughter of poor prognosis.
Anticipated Discharge: > 48 hours
Subjective/Interval History
-
Date of Service: July 10, 2023
states sob has improved.
Objective Data
-
Labs:
Laboratory Results
07/10/23
08:31
Sodium 133 L
Potassium 4.5
Chloride 100
Carbon Dioxide 25
BUN 66 H
Creatinine 1.5 H
Glucose 99
Calcium 9.2
Vital Signs:
Vital Signs
Temp Pulse Resp BP Pulse Ox
96.7 F L 65 20 105/69 92
07/10/23 08:17 07/10/23 08:17 07/10/23 08:17 07/10/23 08:17 07/10/23 09:23
I&O
07/09/23 07/10/23 07/11/23
06:59 06:59 06:59
Intake Total 240 / 240 480 / 480
Output Total 350 / 350 500 / 500
Balance -110 / -110 -20 / -20
Data Reviewed
-
Total Time Spent with Patient (in minutes): 55
[2023-07-10] MEDS: TYLENOL 650 MG PO ×2 (16:01→20:05)
[2023-07-10 17:28] LABS: Urine Sodium 13 mmol/L (30-90)
--- NOTE | 2023-07-10 18:01 | PTCARENOTE ---
Pt c/o feeling a little weak but OOB in a chair for a few hours and walked with PT in halls. Pt encouraged to eat and drink , half an omelette eaten today. Oxygen sat's 98-100% on room air (once his finger warms up) , pt denies shortness of breath
but he has periods of heavy breathing which his daughter states is his baseline. Pt's temperature 97.3 axillary at noon, 95.7 rectal @17:40. Pt dressed in his own warm clothes and warm blankets, he refuses a [place] hugger. Temp slowly coming up , 96
Axillary, will monitor, aware. Telemetry shows sinus rhythm with occasional atrial pacing.
[2023-07-10] MEDS: PACERONE 100 MG PO (22:07)
[2023-07-10] MEDS: LEXAPRO 5 MG PO (22:08)
[2023-07-10] MEDS: REMERON 7.5 MG PO (22:10)
[2023-07-10] MEDS: ASPIR LOW (ENTERIC COATED) 81 MG PO (22:10)
[2023-07-10] MEDS: TOPROL XL 12.5 MG PO (22:10)
--- NOTE | 2023-07-10 23:14 | PTCARENOTE ---
Received pt at handoff. AOX3. Assessment noted as documented. Pt c/o feeling overall weak. Per dayshift RN, pt w/ small appetite; encouraged pt to eat crackers and jam. Pt ate about half then stated he felt better. Education on nutrition provided.
C/o whole body aches rating 4/10. Tylenol administered. Pt on 2L O2 NC sating at 98-100%. Temp obtained axillary 97.3. Currently in bed; call madera w/in reach.
[2023-07-11] VITALS (9 sets, daily range): BP systolic 88–106; BP diastolic 58–69; BMI 17.7
[2023-07-11 03:45] LABS: Hematocrit 47.7 % (39.0-52.0); Hemoglobin 16.3 g/dL (13.0-18.0); Mean Corp Hgb Conc. 34.2 g/dL (33.0-37.0); Mean Corpuscular Hgb 33.7 pg (27.0-31.0); Mean Corpuscular Volume 98.8 fL (80.0-94.0); Mean Platelet Volume 12.5 fL (7.4-10.4); Platelet Count 131 10^3/uL (130-400); Red Blood Cell Count 4.83 10^6/uL (4.70-6.10); Red Cell Dist. Width 16.3 % (11.5-14.5); White Blood Cell Count 6.8 10^3/uL (4.8-10.8)
[2023-07-11 04:00] LABS: Blood Urea Nitrogen 69 mg/dl (9-20); Calcium 9.3 mg/dl (8.4-10.2); Carbon Dioxide 23 mmol/L (22-30); Chloride 97 mmol/L (98-107); Estimated Creatinine Clearance 27 ml/min; Glucose 107 mg/dl (70-99); Potassium 4.4 mmol/L (3.5-5.1); Sodium 135 mmol/L (135-145); eGFR 46.48
--- NOTE | 2023-07-11 05:57 | PTCARENOTE ---
Pt appears to be confused this AM. 2 episodes of incontinence overnight. Pt wanting to use sink to urinate in. Pt re-oriented. Bed alarm activated. Call cassy w/in reach.
[2023-07-11] MEDS: NSS 500 IV (09:02)
[2023-07-11] MEDS: PROSCAR 5 MG PO (11:03)
[2023-07-11] MEDS: ELIQUIS 2.5 MG PO ×2 (11:03→21:20)
[2023-07-11] MEDS: PEPCID 20 MG PO (11:03)
--- NOTE | 2023-07-11 11:34 | CM ---
referral placed for Hospice, family requesting to speak to hospice nurse. called hospice, someone will be up to speak with the family today.
--- NOTE | 2023-07-11 12:36 | HOSPNOTE ---
Discussion about hospice with patient and daughter and patient's spouse. All in agreement with hospice care. The plan is home tomorrow, transport is needed and OOH DNR will be needed on chart. Equipment will be ordered and delivered first thing in
the am.
--- NOTE | 2023-07-11 12:55 | W.PN.HOSP.TC ---
Today's Communication/Plan
-
Home hospice tomorrow.
stop fluids
Assessment / Plan
Assessment / Plan
A/P:� Patient is an 82y M with PMH significant for ASCVD, CHF and PA-Fib who presents to ED complaining of increased anxiety and SOB.
Panic Attack / Anxiety
�- ? if increased anxiety is secondary to hypoxemia or vice versa.
�- There is no evidence of any acute process such as pneumonia, hypervolemia, etc.
�- Continue Lexapro.
�- Morphine for now for pain or increased dyspnea.
�- Consider addition of other anxiolytic for symptom control. Did not qualify for home o2 during daytime.
- Pt did qualify for nocturnal oxygen.
Chronic HFrEF and HFpEF s/p ICD with severe mitral regurgitation and mild tricuspid regurgitation and pulmonary hypertension
�- Stable.� Weight has been stable and no evidence on exam of acute overload despite chronically maximized BNP.
�- Follow I/Os, daily weights, etc.
�- LVEF = 10-15% on most recent Echo.
�- Continue current CV med regimen. BUN elevated and with poor appetite. Holding diuretics for today.
Possible delirium overnight
Currently stable and not agitated
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
-Urine studies with [place]. Patient is losing weight. Remains with decreased appetite. Will stop further fluids as plan for hospice tomorrow.
-bladder scan
-BUN trending up. poor appetite.
-Hold off on aggressive workup as plan to transition to home hospice tomorrow.
CAD s/p stents
�- Stable.� No complaints of chest pain.
�- Continue current CV med regimen.
Paroxysmal Atrial Fibrillation
�- Stable.� Continue Amio, metoprolol and Eliquis.
Recent Pna
Hx of recurrent pleural effusion
-CXR with Small-moderate right-sided pleural effusion with associated pneumonia versus atelectasis right lung base, not significantly changed compared with the prior study.
Cardiomegaly
-Ultrasound chest with effusions. IR consulted for thoracentesis. Status post 1150 cc fluid removed transudative in nature on 07/08.
-IS ordered
Elevated hemoglobin-?secondary Polycythemia in setting of CHF/Diuretics
-Trend cbc for now.
-If worsening may need Heme input.
-already on aspirin/eliquis should help
Severe protein caloric malnutrition of chronic illness
-nutrition on board. Patient and daughter agree to start an appetite stimulant. Will start low-dose Remeron 7.5 mg nightly.
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
DVT Prophylaxis:� On Eliquis
Code Status:� DNR
Discussed case with patient in detail. Discussed case with patient daughter over the phone in detail. Patient with advanced severe cardiomyopathy with chronic kidney disease and is severe protein caloric malnutrition also with recurrent
transudative pleural effusion due to heart failure exacerbation remains with poor prognosis. Patient agreed for hospice. This was relayed to patient daughter. Patient and family agreed for home hospice tomorrow. Dose on hospice on board.
Anticipated Discharge: Within 24 hours
Subjective/Interval History
-
Date of Service: July 11, 2023
Patient continues to remain with poor appetite
Hypothermic at times
Losing weight
Creatinine continues remains elevated
Overnight with confusion.
Objective Data
-
Labs:
Laboratory Results
07/11/23
03:29
WBC 6.8
Hgb 16.3
Hct 47.7
Plt Count 131
Sodium 135
Potassium 4.4
Chloride 97 L
Carbon Dioxide 23
BUN 69 H
Creatinine 1.5 H
Glucose 107 H
Calcium 9.3
Vital Signs:
Vital Signs
Temp Pulse Resp BP Pulse Ox
95.9 F L 62 22 97/59 100
07/11/23 11:00 07/11/23 12:00 07/11/23 11:00 07/11/23 11:22 07/11/23 11:00
I&O
07/10/23 07/11/23 07/12/23
06:59 06:59 06:59
Intake Total 480 / 480 580 / 580
Output Total 500 / 500 350 / 350 150 / 150
Balance -20 / -20 230 / 230 -150 / -150
Physical Exam
-
General: No Apparent Distress, Appears Chronically Ill and Cachectic
HEENT: Normocephalic and Atraumatic
Respiratory: Non Labored Respirations and Decreased Breath Sounds
Cardiac: Regular Rhythm, S1/S2 and Murmur
GI: Soft, Nontender, Nondistended and Flat
Musculoskeletal: No Clubbing
Skin: Warm and Dry
Neuro: Awake, Alert, Oriented and Nonfocal/Grossly Intact
Psych: Calm
Data Reviewed
-
Total Time Spent with Patient (in minutes): 55
--- NOTE | 2023-07-11 13:30 | W.CAR.ICD ---
ICD Inactivation Request
-
Appointment Scheduler Notified: [employer]
The above vendor has been contacted to inactivate the patient's Implantable Cardioverter Defibrillator.
--- NOTE | 2023-07-11 13:31 | W.ICD.INACTI ---
ICD Device Inactivated
-
The patient's ICD device has been inactivated by the vendor.
[2023-07-11] MEDS: TYLENOL 650 MG PO (15:01)
--- NOTE | 2023-07-11 17:40 | PTCARENOTE ---
Pt sleeping peacefully for much of the day, able to stand to void in urinal with one assist. Pt disoriented to time and place this morning, better with his family around him. IV fluids given, pt voiding small amounts of [place] urine. Pt eating
applesauce only. Defibrillator function on ICD turned off. Plan to go home for hospice care at 10:30 on 07/11 via ambulance transport. Pt's family at his bedside, emotional support given.
--- NOTE | 2023-07-11 20:24 | PTCARENOTE ---
Assumed care. Family at bedside. Patient comfortable, oxygen at 2 liters NC, call madera in reach
[2023-07-11] MEDS: ASPIR LOW (ENTERIC COATED) 81 MG PO (21:19)
[2023-07-11] MEDS: REMERON 7.5 MG PO (21:19)
[2023-07-11] MEDS: TOPROL XL 12.5 MG PO (21:20)
[2023-07-11] MEDS: PACERONE 100 MG PO (21:20)
[2023-07-11] MEDS: LEXAPRO 5 MG PO (21:20)
[2023-07-12] MEDS: TYLENOL 650 MG PO (02:30)
--- NOTE | 2023-07-12 04:13 | PTCARENOTE ---
Patient with one episode of bowel incontinence, care provided. New sacral foam placed for protection. Tylenol given for lower back pain and he appears comfortable at rest, son at bedside. Oxygen at 2 liters NC, A-paced HR 60, call madera in reach
[2023-07-12 07:24] VITALS: BP 86/52
[2023-07-12 07:25] VITALS: BP 91/48
--- NOTE | 2023-07-12 09:02 | W.PN.HOSP.TC ---
Today's Communication/Plan
-
home hospice
ICD deactivated
Assessment / Plan
Assessment / Plan
A/P:� Patient is an 82y M with PMH significant for ASCVD, CHF and PA-Fib who presents to ED complaining of increased anxiety and SOB.
Panic Attack / Anxiety
�- ? if increased anxiety is secondary to hypoxemia or vice versa.
�- There is no evidence of any acute process such as pneumonia, hypervolemia, etc.
�- Continue Lexapro.
�- Morphine for now for pain or increased dyspnea.
�- Consider addition of other anxiolytic for symptom control. Did not qualify for home o2 during daytime.
- Pt did qualify for nocturnal oxygen.
Chronic HFrEF and HFpEF s/p ICD with severe mitral regurgitation and mild tricuspid regurgitation and pulmonary hypertension
�- Stable.� Weight has been stable and no evidence on exam of acute overload despite chronically maximized BNP.
�- Follow I/Os, daily weights, etc.
�- LVEF = 10-15% on most recent Echo.
- ICD has been DEACTIVATED.
�- Continue current CV med regimen. BUN elevated and with poor appetite.
Possible delirium overnight
Currently stable and not agitated
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
-Urine studies with FENA Patient is losing weight. Remains with decreased appetite. Will stop further fluids as plan for hospice today
-bladder scan
-BUN trending up. poor appetite.
-Hold off on aggressive workup as plan to transition to home hospice today
CAD s/p stents
�- Stable.� No complaints of chest pain.
�- Continue current CV med regimen.
Paroxysmal Atrial Fibrillation
�- Stable.� Continue Amio, metoprolol and Eliquis.
Recent Pna
Hx of recurrent pleural effusion
-CXR with Small-moderate right-sided pleural effusion with associated pneumonia versus atelectasis right lung base, not significantly changed compared with the prior study.
Cardiomegaly
-Ultrasound chest with effusions. IR consulted for thoracentesis. Status post 1150 cc fluid removed transudative in nature on 07/08.
-IS ordered
Elevated hemoglobin-?secondary Polycythemia in setting of CHF/Diuretics
-Trend cbc for now.
-If worsening may need Heme input.
-already on aspirin/eliquis should help
Severe protein caloric malnutrition of chronic illness
-nutrition on board. Patient and daughter agree to start an appetite stimulant and further be adjusted per hospice team.
DVT Prophylaxis:� On Eliquis
Code Status:� DNR
Discussed case with patient in detail. Discussed case with patient daughter over the phone in detail. Patient with advanced severe cardiomyopathy with chronic kidney disease and is severe protein caloric malnutrition also with recurrent
transudative pleural effusion due to heart failure exacerbation remains with poor prognosis. Patient agreed for hospice. This was relayed to patient daughter. Patient and family agreed for home hospice tomorrow. Dose on hospice on board.
DC on home hospice today.
Anticipated Discharge: Today
Subjective/Interval History
-
Date of Service: July 12, 2023
tired
sleeping
states breathing is okay
Objective Data
-
Vital Signs:
Vital Signs
Temp Pulse Resp BP Pulse Ox
97.2 F 61 20 91/48 99
07/12/23 07:24 07/12/23 07:25 07/12/23 07:24 07/12/23 07:25 07/12/23 07:24
I&O
07/11/23 07/12/23 07/13/23
06:59 06:59 06:59
Intake Total 580 / 580 940 / 940
Output Total 350 / 350 700 / 700
Balance 230 / 230 240 / 240
Physical Exam
-
General: No Apparent Distress, Appears Chronically Ill and Cachectic
HEENT: Normocephalic, Atraumatic and Oxygen
Respiratory: Non Labored Respirations and Decreased Breath Sounds
Cardiac: Regular Rhythm, S1/S2 and Murmur
GI: Soft, Nontender, Nondistended and Flat
Musculoskeletal: No Clubbing
Skin: Warm and Dry
Neuro: Awake, Alert, Oriented and Nonfocal/Grossly Intact
Psych: Calm
[2023-07-12] MEDS: PROSCAR 5 MG PO (09:12)
[2023-07-12] MEDS: PEPCID 20 MG PO (09:12)
[2023-07-12] MEDS: ELIQUIS 2.5 MG PO (09:12)
--- NOTE | 2023-07-12 09:34 | W.DCSUMMARY ---
Discharge Summary
Discharge Data
Date of Admission: 07/08/23
Date of Discharge: 07/12/23
-
Pending Results: No
Hospital Course
82-year-old with past medical history of severe cardiomyopathy EF of 10 to 15% and diastolic heart failure with valvular disease with mitral regurgitation tricuspid vegetation pulmonary hypertension status post ICD, CKD, CAD status post stents,
atrial fibrillation, history of recurrent pleural effusion was presenting from home with anxiety and shortness of breath. Patient with imaging and showed a recurrent pleural effusion. Interventional radiology was consulted status post 1100 cc of
thoracentesis from right side of the lung. Fluid studies consistent with transudative. Patient with multiple prior history of undergoing thoracentesis. Patient also with severely decreased appetite. Creatinine continue to trend up. Multiple
discussion was held with the patient and patient family. Patient with longstanding significantly poor prognosis with elevated creatinine, renal failure, severe ischemic cardiomyopathy, atrial fibrillation, caloric malnutrition. Patient was on
palliative care and he finally agreed to transition to hospice. Patient with transition to home hospice. ICD was deactivated.
Discharge Plan
-
Patient Disposition: Home with Hospice
Discharge Diagnosis/Procedures: Anxiety
Acute kidney injury on chronic kidney disease
Transudative pleural effusion status post thoracentesis
Hypothermia
Hypoxemia nocturnal
Condition: Serious
Diet: As tolerated
Activity: With assistance and As tolerated
Driving Restrictions: Not until seen by your Dr
Referrals:
Home oxygen, [facility] [Other] (Nocturnal (nighttime) Oxygen at 2 liters)
UNKNOWN - PT NOT,[facility] [Family Provider] -
Prescriptions:
Continued
metoprolol succinate 25 MG tablet extended release 24 hr
12.5 mg PO HS
Patient Comments:
06/19/2023, per edwin, pt. does not take this medication regularly.
aspirin 81 mg Tablet,Delayed Release (Dr/Ec)
81 mg PO HS
Patient Comments:
06/19/2023, per edwin, pt. does not take this medication regularly.
amiodarone 100 mg Tablet
100 mg PO HS
Patient Comments:
06/19/2023, per edwin, pt. does not take this medication regularly. Last filled 04/10/2023 for 30-day supply.
Eliquis 2.5 mg Tablet
2.5 mg PO BID
Patient Comments:
06/19/2023, per edwin, pt. does not take this medication regularly.
famotidine 20 MG tablet
20 mg PO BID
Patient Comments:
06/19/2023, per edwin, pt. does not take this medication regularly.
finasteride 5 mg Tablet
5 mg PO DAILY
Patient Comments:
06/19/2023, per edwin, pt. does not take this medication regularly.
escitalopram oxalate 10 mg Tablet
5 mg PO HS
Patient Comments:
06/19/2023, per edwin, pt. does not take this medication regularly.
torsemide 20 mg tablet
20 mg PO DAILY
Patient Comments:
06/19/2023, per edwin, pt. does not take this medication regularly.
Discharge Orders:
Discharge Patient (As Directed); Ordered 07/12/23
Ordered By: Samuel Ivory
Care Plan Goals
Care Plan Goals:
Problem: Readiness for enhanced knowledge related to diagnosis and treatment plan
Goal: Understand your diagnosis and treatment plan needs, including medications if applicable.
Instructions: Know your diagnosis, underlying causes and treatment plan options, including medications if applicable. Consult with your health care team to learn about your diagnosis and treatment plan, including medications if applicable.
Discharge Date and Time
Discharge Date/Time: 07/12/23 11:26
Print Language: BELARUSIAN
--- NOTE | 2023-07-12 09:46 | PTCARENOTE ---
Received patient this morning resting in bed, patient's son spent the night. Notified the patient and his son of ambulance pickling operator time of 1030. The patient's son stated that supplies were dropped off to their home by hospice this morning.
--- NOTE | 2023-07-12 11:06 | PTCARENOTE ---
Discharge instructions given to the patient's son. Patient discharged to home hospice, transported via ambulance stretcher, son took the patient's belongings.
== END 2023-07-12 11:26 | disposition hospice, home (50) ==
LOC: IVU 02:20
PROVIDERS: Emergency Medicine; Registered Nurse; ADMITTING PHYSICIAN Hospitalist; ATTENDING PHYSICIAN Hospitalist; EMERGENCY PHYSICIAN Emergency Medicine
DX: F41.0 Panic disorder [episodic paroxysmal anxiety] (principal); J91.8 Pleural effusion in other conditions classified elsewhere; N17.9 Acute kidney failure, unspecified; I48.0 Paroxysmal atrial fibrillation; I25.10 Atherosclerotic heart disease of native coronary artery without angina pectoris; I13.0 Hypertensive heart and chronic kidney disease with heart failure and stage 1 through stage 4 chronic kidney disease, or unspecified chronic kidney disease; Z51.5 Encounter for palliative care; Z66 Do not resuscitate; R68.0 Hypothermia, not associated with low environmental temperature; N18.32 Chronic kidney disease, stage 3b; I50.42 Chronic combined systolic (congestive) and diastolic (congestive) heart failure; I25.2 Old myocardial infarction; I25.5 Ischemic cardiomyopathy; I34.0 Nonrheumatic mitral (valve) insufficiency; R09.02 Hypoxemia; E43 Unspecified severe protein-calorie malnutrition; I27.20 Pulmonary hypertension, unspecified; F32.A Depression, unspecified; E78.00 Pure hypercholesterolemia, unspecified; Z11.52 Encounter for screening for COVID-19; Z68.1 Body mass index [BMI] 19.9 or less, adult; Z79.01 Long term (current) use of anticoagulants; Z79.82 Long term (current) use of aspirin; Z82.49 Family history of ischemic heart disease and other diseases of the circulatory system; Z86.718 Personal history of other venous thrombosis and embolism; Z86.74 Personal history of sudden cardiac arrest; Z87.01 Personal history of pneumonia (recurrent); Z95.5 Presence of coronary angioplasty implant and graft; Z95.810 Presence of automatic (implantable) cardiac defibrillator
CPT/HCPCS: 32555; 71045; 71046; 76604; 80048; 80053; 82570; 82945; 83615; 83880; 83986; 84145; 84155; 84157; 84300; 84484; 85025; 85027; 85379; 87015; 87070; 87205; 87502; 87811; 89051; 93005; 94762; 96374; 97116; 97162; 97166; 97530; 99285; G0378